=== PATIENT | female | born 2000 | race Caucasian/White ===

== ENCOUNTER 2019-10-12 14:06 | Observation (INO) ==
[2019-10-12] MEDS ORDERED: SODIUM CHLORIDE 0.9% 1000ML 1,000 ML IV ONE ×2 (15:38→17:56)
[2019-10-12] MEDS ORDERED: KETOROLAC TROMETHAMINE 15 MG/ML VIAL IV STA (15:38)
--- NOTE | 2019-10-12 15:54 | XRay Report ---
XR chest 1V portable CLINICAL HISTORY: 18 years-old Female presenting with Chest Pain. TECHNIQUE: Portable upright AP view of the chest was obtained. COMPARISON: 11/06/2012. FINDINGS: Cardiomediastinal silhouette normal. Lungs are hyperinflated. No focal opacity. No pleural effusion o r pneumothorax. Osseous structures normal. Upper abdomen normal. IMPRESSION: 1. Hyperinflation could be due to inspiratory effort and is unchanged since 2012. No focal infiltrat e to suggest pneumonia. ACT 112: Negative or not required by law. Electronically signed by: Trever Gordon M.D. 10/12/2019 3:53 PM
[2019-10-12 16:27] LABS: Basophils # (auto) 0.03 K/uL (0-0.2); Basophils % (auto) 0.2 %; Eosinophils # (auto) 0.01 K/uL (0-0.5); Eosinophils % (auto) 0.1 %; Hematocrit (blood only) 42.3 % (37-47); Hemoglobin 14.5 g/dL (12.0-16.0); Immature Granulocytes # (auto) 0.04 K/uL (0.00-0.02); Immature Granulocytes % (auto) 0.2 %; Lymphocytes # (auto) 1.65 K/uL (1.2-3.4); Mean Corpuscular Hemoglobin 30.5 pg (25-34); Mean Corpuscular Hgb Conc 34.3 g/dL (32-36); Mean Corpuscular Volume 88.9 fL (80-100); Mean Platelet Volume 10.6 fL (7.4-10.4); Monocytes # (auto) 0.88 K/uL (0.11-0.59); Monocytes % (auto) 5.3 %; Neutrophils % (auto) 84.2 %; Platelet Count 279 K/uL (130-400); RDW Coefficient of Variation 12.5 % (11.5-14.5); RDW Standard Deviation 40.3 fL (36.4-46.3); Red Blood Count 4.76 M/uL (4.2-5.4); White Blood Count 16.51 K/uL (4.8-10.8)
[2019-10-12 16:44] LABS: Alanine Aminotransferase 16 U/L (12-78); Albumin Level 4.7 gm/dl (3.4-5.0); Aspartate Aminotransferase 11 U/L (15-37); BUN Creatinine Ratio 9.1 (10-20); Blood Urea Nitrogen 8 mg/dl (7-18); Calcium 10.2 mg/dl (8.5-10.1); Carbon Dioxide 23 mmol/L (21-32); Chloride 108 mmol/L (98-107); Est GFR (African American) 116.8; Est GFR (Non-African American) 100.8; Glucose 99 mg/dl (70-99); Lipase 115 U/L (73-393); Magnesium 1.9 mg/dl (1.8-2.4); Potassium 3.8 mmol/L (3.5-5.1); Sodium 139 mmol/L (136-145)
[2019-10-12 16:45] LABS: D Dimer 200 ug/L FEU (0-500); INR 1.1 (0.9-1.1); Partial Thromboplastin Ratio 0.8; Partial Thromboplastin Time 22.8 Seconds (21.0-31.0)
[2019-10-12 16:47] LABS: Pregnancy Test, Serum Negative (Negative)
[2019-10-12 16:54] LABS: Albumin Globulin Ratio 1.1 (0.9-2); Alkaline Phosphatase 69 U/L (45-117); Bilirubin,Total 0.5 mg/dl (0.2-1); Globulin 4.2 gm/dl (2.5-4.0); Thyroid Stimulating Hormone 0.041 uIu/ml (0.300-4.500); Total Protein 8.9 gm/dl (6.4-8.2); Troponin I < 0.015 ng/ml (0-0.045)
[2019-10-12 17:07] LABS: T4 Free Thyroxine 2.17 ng/dl (0.8-1.6)
[2019-10-12] MEDS ORDERED: ADENOSINE IV SOLN 3 MG/ML 2 ML VIAL IV ONE (17:43)
[2019-10-12] MEDS ORDERED: ADENOSINE IV SOLN 3 MG/ML 2 ML VIAL IV STA ×3 (17:46→17:53)
[2019-10-12] MEDS ORDERED: MAGNESIUM SULFATE / D5W 1 GM/100 ML BAG IV ONE (17:53)
[2019-10-12] MEDS ORDERED: POTASSIUM PHOS 3 MMOL/1 ML INFUSION IV STA (17:56)
[2019-10-12] MEDS ORDERED: METOPROLOL TARTRATE 1 MG/ML VIAL IV STA (17:56)
[2019-10-12] MEDS ORDERED: METOPROLOL TARTRATE 1 MG/ML VIAL IV ONE (17:57)
[2019-10-12] MEDS ORDERED: POTASSIUM PHOSPHATE 6 MMOL in SODIUM CHLORIDE 0.9% 250 ML IV STA (18:07)
[2019-10-12 19:43] LABS: T3 Free 5.9 pg/ml (2.3-4.2); T3 Total 2.19 ng/ml (0.60-1.81)
--- NOTE | 2019-10-12 22:24 | History & Physical Report ---
Date of Service October 12, 2019 Assessment & Plan (1) Hyperthyroidism: Jesika is a 18yo with a PMHx of endometriosis and ovarian cysts who presented to the ED with chest pain and was found to be hyperthyroid. Hyperthyroidism -Pt presented with chest pain, tachycardia -TSH decreased at 0.041, T4 of 2.17 and T3 of 5.90 -EKG with sinus tachycardia and possible biatrial enlargement; vr 127; qtc 447 -will get thyroid Ig levels, thyroid US and thyroid nuclear scan -s/p adenosine and metoprolol tartrate in ED; will treat tachycardia with propranolol 10mg BID -toradol 10mg po q6h prn for pain -will not treat hyperthyroidism with methimazole yet as awaiting testing; can start once testing complete -replace and optimize electrolytes as needed. -med/surg with tele for continued monitoring Endometriosis/Ovarian cyst -stable -continue NSAIDs (toradol ordered as above) if pain control needed while hospitalized. FEN/GI: Regular diet DVT prophylaxis: low risk, ambulation as tolerated CODE STATUS: Full Dispo: Med/Surg with tele History of Present Illness Primary Care Provider: Marcella Morgan MD Maddison is a 18yo with only known endometriosis who presented to the ED after chest pain for the last day or two. Noticed it yesterday, was not doing anything in particular and thought it was related to her Hx of endometriosis as she felt the pain in her left breast. However the pain started to progress to her shoulder and back and was assocaited with dyspnea with exertion. She went to urgent care but the wait was too long so she presented to the ED. Of note she states that she has been feeling tired recently and mom in the room noted that she had a period where she had a "fast metabolism". She would have this hunger that didnt seem to be satisfied. PMHx: Endometriosis, ovarian cyst PSH: Oromaxillary facial surgery Allergies: NKDA Fam Hx: Mother alive healthy; father: unsure exact cardiac Hx--NO fam Hx of thyroid disease SH: Sophomore at [employer], lives at home. Denies recreational drug use, vaping, herbal supplements, caffeine or alcohol use. Never smoker. Diet is monitored, feels it is healthy, does not exercise much. ED Course: Adenosine 6mg and 12mg, Metoprolol tartrate 5mg, magnesium, potassium phosphate, fluids, toradol Allergies Allergy/AdvReac Type Severity Reaction Status Date / Time Cephalosporins Allergy Unknown Verified 10/15/19 13:46 amoxicillin [From Augmentin] Allergy Verified 10/15/19 13:46 cefdinir [From Omnicef] Allergy Verified 10/15/19 13:46 clavulanic acid Allergy Verified 10/15/19 13:46 [From Augmentin] clindamycin [From Cleocin] Allergy Verified 10/15/19 13:46 Home Medications Home Medications Medication Instructions Recorded Confirmed Type naproxen 250 mg PO BID #28 tab 10/14/19 10/15/19 Rx pantoprazole 40 mg PO QAM #14 tab 10/14/19 10/15/19 Rx propranolol 10 mg PO BID #60 tab 10/14/19 10/15/19 Rx methimazole 15 mg PO QAM 10/15/19 10/15/19 Rx Past Med/Surg History Medical History Fatigue No pertinent past medical history Ovarian cyst Surgical History History of oral surgery Family History Mother No pertinent family history Father No pertinent family history Social History Preferred Language: Qatari Communication Ability: Effective Java [email or web address] Application Developer Required: No Beliefs That Will Affect Care: None Current Living Situation: Other Current Living Situation Comment: [employer] student Feels Safe at Home: Yes Smoking Status: Never smoker Hx Alcohol Use: No Hx Substance Use: No Childhood Exposure to Second-Hand Smoke: No Dental Care, Regularly: Yes Review of Systems Constitutional: + weight loss; no fever, no chills and no sweats Eyes: no worsening vision Ear, Nose, Mouth, Throat: no nasal congestion and no sore throat Respiratory: + dyspnea and + dyspnea on exertion; no cough Cardiovascular: + chest pain, + chest pain at rest and + palpitations; no edema Gastrointestinal: no nausea, no vomiting, no constipation and no diarrhea/loose stools Genitourinary: no dysuria and no hematuria Musculoskeletal: no body aches Neurologic: + tingling and + numbness; no headache(s) Physical Exam Physical Exam: General: Alert, oriented. No acute distress Skin: No noted rashes or bruises Psych: Appropriate mood and affect Neuro: No gross deficits HEENT: NC/AT, PERRLA, EOMI, oropharynx moist. Chest: Nontender to palpation. CV: tachycardic rate, Normal s1, s2. No murmurs appreciated Resp: Breath sounds clear bilaterally, no increased effort of breathing. No crackles/rhonchi/rales. Abdomen: Soft, nontender, nondistended. No guarding. No organomegaly appreciated. Extremities: No edema in lower extremities bilaterally. Results & Data Vital Signs (Past 12 Hours) Vital Signs Temp Pulse Resp BP Pulse Ox 10/12/19 22:01 97 H 15 10/12/19 22:00 101 H 18 109/78 10/12/19 21:45 90 19 10/12/19 21:31 103 H 20 10/12/19 21:30 102 H 22 127/83 10/12/19 21:15 105 H 23 10/12/19 21:01 98 H 16 10/12/19 21:00 113 H 12 125/79 10/12/19 20:45 101 H 16 10/12/19 20:43 101 H 20 10/12/19 20:42 101 H 19 117/69 98 10/12/19 20:41 105 H 34 H 10/12/19 20:20 107 H 12 10/12/19 20:10 109 H 12 10/12/19 20:00 108 H 13 10/12/19 19:30 96 H 12 10/12/19 19:00 97 H 19 10/12/19 18:45 111 H 17 110/63 100 10/12/19 18:40 110 H 24 105/61 100 10/12/19 18:36 110 H 12 102/72 10/12/19 18:31 120 H 16 10/12/19 18:30 121 H 11 L 98/60 L 77 L 10/12/19 18:25 122 H 10 L 112/64 90 10/12/19 18:21 122 H 16 100 10/12/19 18:20 124 H 9 L 111/61 100 10/12/19 18:15 123 H 10 L 105/62 100 10/12/19 18:11 116 H 19 100 10/12/19 18:10 118 H 9 L 104/66 100 10/12/19 18:05 106 H 14 111/61 100 10/12/19 18:02 112 H 16 100 10/12/19 18:01 113 H 9 L 99/60 L 100 10/12/19 14:08 36.5 C 148 H 20 132/81 97 Supervising Physician Co-Signing Physician Notes Attending addendum: I have physically seen this patient, have supervised the medical residents activities, and agree with the H&P unless as otherwise noted. Assessment and Plan: Chest pain and tachycardia/hyperthyroidism- The patient will be admitted to telemetry for serial cardiac enzymes, serial EKG's, cardiac rhythm monitoring and a 2-D echocardiogram with Dopplers. Order thyroid ultrasound and thyroid uptake scan. Order thyroid antibody studies. No antithyroid medications tonight. PRN beta-dariel Toradol 15 mg IV every 6 hours PRN moderate pain. Acetaminophen 600 mg p.o. every 6 hours PRN mild pain or temperature. Remainder of orders and notations as noted. Resident Activity Tracking Resident Involvement: Resident Care Provided Care Provided: Adult [facility]
--- NOTE | 2019-10-12 22:26 | Electrocardiogram Report ---
Test Reason : Blood Pressure : / mmHG Vent. Rate : 127 BPM Atrial Rate : 127 BPM P-R Int : 152 ms QRS Dur : 086 ms QT Int : 308 ms P-R-T Axes : 072 075 056 degrees QTc Int : 447 ms Sinus tachycardia Biatrial enlargement Nonspecific ST abnormality Abnormal ECG No previous ECGs available Confirmed by Jose Washburn ([id number]) on 10/12/2019 10:26:34 PM Referred By: Confirmed By:Jose Washburn
[2019-10-12] MEDS ORDERED: INFLUENZA VIRUS QUAD VACCINE 0.5 ML SYR IM ONE (23:01)
[2019-10-12] MEDS ORDERED: INFLUENZA ADMINISTRATION CHARGE ONE (23:01)
[2019-10-12] MEDS: PROPRANOLOL HCL 10 MG TAB PO SCH (23:38)
[2019-10-13] MEDS ORDERED: KETOROLAC TROMETHAMINE 10 MG TABLET PO PRN (00:12)
--- NOTE | 2019-10-13 03:04 | Emergency Department Note ---
Entered by Sherri Medina acting as a scribe for Jose Jackson MD History of Present Illness General Chief complaint: Chest Pain Stated complaint: LEFT ARM PAIN Time Seen by Provider: 10/12/19 15:02 Source: patient Mode of arrival: ambulatory Limitations: no limitations History of Present Illness Onset (ago): hour(s) greater than 10 (14) Location: chest Radiation: extremity (left arm and left shoulder) Pain Consistency: + constant Maximum Pain Intensity: 7 Current Pain Intensity: 7 Quality: + other ("soreness") Relieved By: + none Exacerbated By: + none Associated symptoms: + shortness of breath and + other (-urinary symptoms, -back pain) Treatments prior to arrival: none The patient is a 18 year old female who presents to the ED with complaints of chest pain that began this morning around 0130. She is accompanied by her Father. She rates her pain as a 7/10 in severity. The pain feels like "soreness". The pain has also radiated into her left arm and left shoulder. She is not on control. She denies any recent fevers, chills, cough or congestion. She has been eating and drinking normally. She has been minimally short of breath. She denies any urinary symptoms. She denies any recent travel or long trips. She does not smoke cigarettes or use illegal drugs. She notes she can be occasionally anxious but states there is nothing to be anxious about currently and she has not been overwhelmed with exams or school projects. She denies any back pain. Her father denies any family history of blood clots or heart attack in someone under the age of 40. The patient does not drink coffee or use energy drinks or supplements. Home Medications Home Medications Medication Instructions Recorded Confirmed Type No Known Home Medications 02/26/19 10/12/19 History Allergies Allergy/AdvReac Type Severity Reaction Status Date / Time Cephalosporins Allergy Unknown Verified 10/12/19 17:23 amoxicillin [From Augmentin] Allergy Verified 10/12/19 17:23 cefdinir [From Omnicef] Allergy Verified 10/12/19 17:23 clavulanic acid Allergy Verified 10/12/19 17:23 [From Augmentin] clindamycin [From Cleocin] Allergy Verified 10/12/19 17:23 Past Med/Surg History Medical History Fatigue No pertinent past medical history Ovarian cyst Surgical History History of oral surgery Family History Mother No pertinent family history Father No pertinent family history Social History Preferred Language: Guinean Communication Ability: Effective 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 and A total of 10 systems reviewed and were otherwise negative Physical Exam Vital Signs Vital Signs - 24 hr 10/12/19 14:08 10/12/19 18:01 10/12/19 18:02 Temperature 36.5 C Temperature Source Oral Pulse Rate 148 H 113 H 112 H Pulse Rate from SpO2 Sensor 115 H 112 H Pulse Rhythm Regular Pulse Strength Normal Respiratory Rate 20 9 L 16 Respiratory Effort / Characteristics Non-Labored Spontaneous Respiratory Depth Normal Respiratory Pattern Regular Blood Pressure 132/81 99/60 L Blood Pressure Mean 98 79 Blood Pressure Position Sitting Pulse Oximetry 97 100 100 Oxygen Delivery Method Room Air Sepsis Recent Fever Within 48 Hours No Sepsis Action Taken by Nursing No Action Required 10/12/19 18:05 10/12/19 18:10 10/12/19 18:11 Temperature Temperature Source Pulse Rate 106 H 118 H 116 H Pulse Rate from SpO2 Sensor 107 H 117 H 116 H Pulse Rhythm Pulse Strength Respiratory Rate 14 9 L 19 Respiratory Effort / Characteristics Respiratory Depth Respiratory Pattern Blood Pressure 111/61 104/66 Blood Pressure Mean 79 78 Blood Pressure Position Pulse Oximetry 100 100 100 Oxygen Delivery Method Sepsis Recent Fever Within 48 Hours Sepsis Action Taken by Nursing 10/12/19 18:15 10/12/19 18:20 10/12/19 18:21 Temperature Temperature Source Pulse Rate 123 H 124 H 122 H Pulse Rate from SpO2 Sensor 124 H 125 H 123 H Pulse Rhythm Pulse Strength Respiratory Rate 10 L 9 L 16 Respiratory Effort / Characteristics Respiratory Depth Respiratory Pattern Blood Pressure 105/62 111/61 Blood Pressure Mean 79 78 Blood Pressure Position Pulse Oximetry 100 100 100 Oxygen Delivery Method Sepsis Recent Fever Within 48 Hours Sepsis Action Taken by Nursing 10/12/19 18:25 10/12/19 18:30 10/12/19 18:31 Temperature Temperature Source Pulse Rate 122 H 121 H 120 H Pulse Rate from SpO2 Sensor 115 H 151 H Pulse Rhythm Pulse Strength Respiratory Rate 10 L 11 L 16 Respiratory Effort / Characteristics Respiratory Depth Respiratory Pattern Blood Pressure 112/64 98/60 L Blood Pressure Mean 79 69 Blood Pressure Position Pulse Oximetry 90 77 L Oxygen Delivery Method Sepsis Recent Fever Within 48 Hours Sepsis Action Taken by Nursing 10/12/19 18:36 10/12/19 18:40 10/12/19 18:45 Temperature Temperature Source Pulse Rate 110 H 110 H 111 H Pulse Rate from SpO2 Sensor 117 H 111 H 112 H Pulse Rhythm Pulse Strength Respiratory Rate 12 24 17 Respiratory Effort / Characteristics Respiratory Depth Respiratory Pattern Blood Pressure 102/72 105/61 110/63 Blood Pressure Mean 81 69 78 Blood Pressure Position Pulse Oximetry 100 100 Oxygen Delivery Method Sepsis Recent Fever Within 48 Hours Sepsis Action Taken by Nursing 10/12/19 19:00 10/12/19 19:30 10/12/19 20:00 Temperature Temperature Source Pulse Rate 97 H 96 H 108 H Pulse Rate from SpO2 Sensor Pulse Rhythm Pulse Strength Respiratory Rate 19 12 13 Respiratory Effort / Characteristics Respiratory Depth Respiratory Pattern Blood Pressure Blood Pressure Mean Blood Pressure Position Pulse Oximetry Oxygen Delivery Method Sepsis Recent Fever Within 48 Hours Sepsis Action Taken by Nursing 10/12/19 20:10 10/12/19 20:20 10/12/19 20:41 Temperature Temperature Source Pulse Rate 109 H 107 H 105 H Pulse Rate from SpO2 Sensor Pulse Rhythm Pulse Strength Respiratory Rate 12 12 34 H Respiratory Effort / Characteristics Respiratory Depth Respiratory Pattern Blood Pressure Blood Pressure Mean Blood Pressure Position Pulse Oximetry Oxygen Delivery Method Sepsis Recent Fever Within 48 Hours Sepsis Action Taken by Nursing 10/12/19 20:42 10/12/19 20:43 10/12/19 20:45 Temperature Temperature Source Pulse Rate 101 H 101 H 101 H Pulse Rate from SpO2 Sensor Pulse Rhythm Pulse Strength Respiratory Rate 19 20 16 Respiratory Effort / Characteristics Respiratory Depth Respiratory Pattern Blood Pressure 117/69 Blood Pressure Mean 88 Blood Pressure Position Pulse Oximetry 98 Oxygen Delivery Method Sepsis Recent Fever Within 48 Hours Sepsis Action Taken by Nursing 10/12/19 21:00 10/12/19 21:01 10/12/19 21:15 Temperature Temperature Source Pulse Rate 113 H 98 H 105 H Pulse Rate from SpO2 Sensor Pulse Rhythm Pulse Strength Respiratory Rate 12 16 23 Respiratory Effort / Characteristics Respiratory Depth Respiratory Pattern Blood Pressure 125/79 Blood Pressure Mean 96 Blood Pressure Position Pulse Oximetry Oxygen Delivery Method Sepsis Recent Fever Within 48 Hours Sepsis Action Taken by Nursing 10/12/19 21:30 10/12/19 21:31 10/12/19 21:45 Temperature Temperature Source Pulse Rate 102 H 103 H 90 Pulse Rate from SpO2 Sensor Pulse Rhythm Pulse Strength Respiratory Rate 22 20 19 Respiratory Effort / Characteristics Respiratory Depth Respiratory Pattern Blood Pressure 127/83 Blood Pressure Mean 97 Blood Pressure Position Pulse Oximetry Oxygen Delivery Method Sepsis Recent Fever Within 48 Hours Sepsis Action Taken by Nursing 10/12/19 22:00 10/12/19 22:01 Temperature Temperature Source Pulse Rate 101 H 97 H Pulse Rate from SpO2 Sensor Pulse Rhythm Pulse Strength Respiratory Rate 18 15 Respiratory Effort / Characteristics Respiratory Depth Respiratory Pattern Blood Pressure 109/78 Blood Pressure Mean 91 Blood Pressure Position Pulse Oximetry Oxygen Delivery Method Sepsis Recent Fever Within 48 Hours Sepsis Action Taken by Nursing GENERAL: Awake, alert, anxious-appearing, in no distress HENT: Normocephalic, atraumatic. Oropharynx with dry mucous membranes and otherwise unremarkable. EYES: Normal conjunctiva. Sclera non-icteric. NECK: Supple. No nuchal rigidity. FROM. No JVD. RESPIRATORY: CTAB. CHEST: Mild reproducible anterior chest wall discomfort, no discrete tenderness. CARDIAC: Tachycardic rate, normal rhythm. Extremities warm and well perfused. Pulses equal. ABDOMEN: Soft, non-distended. No tenderness to palpation. No rebound or guarding. No masses. RECTAL: Deferred. MUSCULOSKELETAL: Chest examination reveals no tenderness. The back is symmetrical on inspection without obvious abnormality. There is no CVA tenderness to palpation. No joint edema. LOWER EXTREMITIES: Calves are equal size bilaterally and non-tender. No edema. No discoloration. NEURO: Normal sensorium. No sensory or motor deficits noted. SKIN: No rash or jaundice noted. Course Course 1531: The patient was evaluated in room B9 and a complete history and physical were performed. 2034: I reevaluated the patient. She is resting comfortably. I discussed her results and my recommendation she remain in the hospital for further evaluation and management and she is agreeable with the plan. 2044: I discussed the patients case with Dr. Camacho, [facility]. The patient will be further evaluated. Administered Medications Propranolol HCl (Inderal) 10 mg PO BID ANDREAS Stop: 11/11/19 22:59 Last Admin: 10/12/19 23:38 Dose: 10 mg Documented by: [id number] Discontinued Medications Adenosine (Adenosine) Confirm Administered Dose 6 mg IV .STK-MED ONE Stop: 10/12/19 17:44 Last Admin: 10/12/19 18:12 Dose: Not Given Documented by: [id number] Adenosine (Adenosine) 6 mg IV NOW STA Stop: 10/12/19 17:47 Last Admin: 10/12/19 18:12 Dose: 6 mg Documented by: [id number] Adenosine (Adenosine) 12 mg IV NOW STA Stop: 10/12/19 17:47 Last Admin: 10/12/19 18:11 Dose: 12 mg Documented by: [id number] Adenosine (Adenosine) 12 mg IV NOW STA Stop: 10/12/19 17:54 Last Admin: 10/12/19 18:11 Dose: 12 mg Documented by: [id number] Sodium Chloride (Nss 1000ml) 1,000 mls @ 999 mls/hr IV .Q1H1M ONE Stop: 10/12/19 16:38 Last Infusion: 10/12/19 19:20 Dose: 0 mls/hr Documented by: [id number] Infusion: 10/12/19 19:20 Dose: 0 mls/hr Documented by: [id number] Admin: 10/12/19 16:35 Dose: 999 mls/hr Documented by: [id number] Magnesium Sulfate/Dextrose (Magnesium Sulfate / D5w) 1 gm in 100 mls @ 100 mls/hr IV ONE ONE Stop: 10/12/19 18:52 Last Infusion: 10/12/19 20:10 Dose: 0 mls/hr Documented by: [id number] Admin: 10/12/19 19:02 Dose: 100 mls/hr Documented by: [id number] Sodium Chloride (Nss 1000ml) 1,000 mls @ 999 mls/hr IV .Q1H1M ONE Stop: 10/12/19 18:56 Last Infusion: 10/12/19 19:21 Dose: 0 mls/hr Documented by: [id number] Admin: 10/12/19 18:11 Dose: 999 mls/hr Documented by: [id number] Potassium Phosphate 6 mmol/ (Sodium Chloride) 252 mls @ 88 mls/hr IV NOW STA Stop: 10/12/19 20:58 Last Infusion: 10/12/19 21:43 Dose: 0 mls/hr Documented by: [id number] Admin: 10/12/19 18:53 Dose: 88 mls/hr Documented by: [id number] Ketorolac Tromethamine (Toradol) 15 mg IV NOW STA Stop: 10/12/19 15:39 Last Admin: 10/12/19 16:35 Dose: 15 mg Documented by: [id number] Metoprolol Tartrate (Lopressor) 5 mg IV NOW STA Stop: 10/12/19 17:57 Last Admin: 10/12/19 18:11 Dose: 5 mg Documented by: [id number] Metoprolol Tartrate (Lopressor) Confirm Administered Dose 5 mg IV .STEdCourage-MED ONE Stop: 10/12/19 17:58 Last Admin: 10/12/19 18:11 Dose: Not Given Documented by: [id number] Potassium Phosphate (Potassium Phosphate Replace) 6 mmol IV NOW STA Stop: 10/12/19 17:57 Last Admin: 10/12/19 18:58 Dose: Not Given Documented by: [id number] Critical Care Time Critical Care Time: Yes Total Critical Care Time: 85 I have personally spent greater than 85 minutes of critical care time in the direct management of this patient. This includes bedside care, interpretation of diagnostic studies, and testing, discussion with consultants, patient, and family members, and other required patient management activities. This 85 minutes is in excess of all separately billable procedures. Medical Decision Making Differential Diagnosis Differential diagnoses includes but is not limited to acute coronary syndrome, myocardial infarction, pericarditis, pulmonary embolus, aortic dissection, pneumonia, pneumothorax, musculoskeletal, shingles, esophageal. Medical Records Attestation: I reviewed the patient's medical records. Home Medications Current Medication List: was personally reviewed by me Laboratory Data Attestation: I reviewed the patient's lab results. Result diagrams: 10/12/19 16:15 10/12/19 16:15 Lab Results 10/12/19 10/12/19 10/12/19 Range/Units 16:15 16:15 16:15 WBC 16.51 H (4.8-10.8) K/uL RBC 4.76 (4.2-5.4) M/uL Hgb 14.5 (12.0-16.0) g/dL Hct 42.3 (37-47) % MCV 88.9 (80-100) fL MCH 30.5 (25-34) pg MCHC 34.3 (32-36) g/dL RDW Std Deviation 40.3 (36.4-46.3) fL RDW Coeff of Nya 12.5 (11.5-14.5) % Plt Count 279 (130-400) K/uL MPV 10.6 H (7.4-10.4) fL Immature Gran % (Auto) 0.2 % Neut % (Auto) 84.2 % Lymph % (Auto) 10.0 % Terry % (Auto) 5.3 % Eos % (Auto) 0.1 % Baso % (Auto) 0.2 % Immature Gran # (Auto) 0.04 H (0.00-0.02) K/uL Neut # (Auto) 13.90 H (1.4-6.5) K/uL Lymph # (Auto) 1.65 (1.2-3.4) K/uL Terry # (Auto) 0.88 H (0.11-0.59) K/uL Eos # (Auto) 0.01 (0-0.5) K/uL Baso # (Auto) 0.03 (0-0.2) K/uL PT 11.0 (9.0-12.0) Seconds INR 1.1 (0.9-1.1) APTT 22.8 (21.0-31.0) Seconds PTT Ratio 0.8 D-Dimer 200 (0-500) ug/L FEU Sodium 139 (136-145) mmol/L Potassium 3.8 (3.5-5.1) mmol/L Chloride 108 H (98-107) mmol/L Carbon Dioxide 23 (21-32) mmol/L Anion Gap 8.0 (3-11) BUN 8 (7-18) mg/dl Creatinine 0.84 (0.6-1.2) mg/dl Est Cr Clr Drug Dosing 102.0 ml/min Est GFR ( Amer) 116.8 Est GFR (Non-Af Amer) 100.8 BUN/Creatinine Ratio 9.1 L (10-20) Glucose 99 (70-99) mg/dl Calcium 10.2 H (8.5-10.1) mg/dl Phosphorus 2.0 L (2.5-4.9) mg/dl Magnesium 1.9 (1.8-2.4) mg/dl Total Bilirubin 0.5 (0.2-1) mg/dl AST 11 L (15-37) U/L ALT 16 (12-78) U/L Alkaline Phosphatase 69 (45-117) U/L Troponin I < 0.015 (0-0.045) ng/ml Total Protein 8.9 H (6.4-8.2) gm/dl Albumin 4.7 (3.4-5.0) gm/dl Globulin 4.2 H (2.5-4.0) gm/dl Albumin/Globulin Ratio 1.1 (0.9-2) Lipase 115 (73-393) U/L TSH 0.041 L (0.300-4.500) uIu/ml Free T4 2.17 H (0.8-1.6) ng/dl Free T3 (2.3-4.2) pg/ml Total T3 (0.60-1.81) ng/ml HCG, Qual (Negative) 10/12/19 10/12/19 Range/Units 16:15 16:15 WBC (4.8-10.8) K/uL RBC (4.2-5.4) M/uL Hgb (12.0-16.0) g/dL Hct (37-47) % MCV (80-100) fL MCH (25-34) pg MCHC (32-36) g/dL RDW Std Deviation (36.4-46.3) fL RDW Coeff of Nya (11.5-14.5) % Plt Count (130-400) K/uL MPV (7.4-10.4) fL Immature Gran % (Auto) % Neut % (Auto) % Lymph % (Auto) % Terry % (Auto) % Eos % (Auto) % Baso % (Auto) % Immature Gran # (Auto) (0.00-0.02) K/uL Neut # (Auto) (1.4-6.5) K/uL Lymph # (Auto) (1.2-3.4) K/uL Terry # (Auto) (0.11-0.59) K/uL Eos # (Auto) (0-0.5) K/uL Baso # (Auto) (0-0.2) K/uL PT (9.0-12.0) Seconds INR (0.9-1.1) APTT (21.0-31.0) Seconds PTT Ratio D-Dimer (0-500) ug/L FEU Sodium (136-145) mmol/L Potassium (3.5-5.1) mmol/L Chloride (98-107) mmol/L Carbon Dioxide (21-32) mmol/L Anion Gap (3-11) BUN (7-18) mg/dl Creatinine (0.6-1.2) mg/dl Est Cr Clr Drug Dosing ml/min Est GFR ( Amer) Est GFR (Non-Af Amer) BUN/Creatinine Ratio (10-20) Glucose (70-99) mg/dl Calcium (8.5-10.1) mg/dl Phosphorus (2.5-4.9) mg/dl Magnesium (1.8-2.4) mg/dl Total Bilirubin (0.2-1) mg/dl AST (15-37) U/L ALT (12-78) U/L Alkaline Phosphatase (45-117) U/L Troponin I (0-0.045) ng/ml Total Protein (6.4-8.2) gm/dl Albumin (3.4-5.0) gm/dl Globulin (2.5-4.0) gm/dl Albumin/Globulin Ratio (0.9-2) Lipase (73-393) U/L TSH (0.300-4.500) uIu/ml Free T4 (0.8-1.6) ng/dl Free T3 5.90 H (2.3-4.2) pg/ml Total T3 2.19 H (0.60-1.81) ng/ml HCG, Qual Negative (Negative) Imaging Data Radiologist's Impression: Radiology results as stated below per my review and the radiologist's interpretation: XR chest 1V portable CLINICAL HISTORY: 18 years-old Female presenting with Chest Pain. TECHNIQUE: Portable upright AP view of the chest was obtained. COMPARISON: 11/06/2012. FINDINGS: Cardiomediastinal silhouette normal. Lungs are hyperinflated. No focal opacity. No pleural effusion or pneumothorax. Osseous structures normal. Upper abdomen normal. IMPRESSION: 1. Hyperinflation could be due to inspiratory effort and is unchanged since 2012. No focal infiltrate to suggest pneumonia. ACT 112: Negative or not required by law. Electronically signed by: Trever Gordon M.D. 10/12/2019 3:53 PM ECG Data Attestation: I personally reviewed and interpreted this ECG as follows: Indication: + chest pain Rate (beats per minute): 127 Rhythm: + sinus tachycardia ECG Intervals/blocks: + Normal QRS (86) and + Normal QT-c (447) ECG ST segments: no ST depression and no ST elevation ECG Findings: + Other (Non-specific ST abnormality, no delta wave) Blood Pressure Blood Pressure Findings: Normal blood pressure Blood Pressure Disposition: did not require urgent referral MDM Narrative The patient is a pleasant 18 y/o woman who presents to the emergency department with constant chest pain and palpitations per HPI. On arrival the patient is anxious appearing but in NAD, AF, HR 120s and otherwise, VSS. On exam patient appears clinically dry. She has mild reproducible anterior CW discomfort. Initial EKG demonstrates sinus tachycardia without overt acute ischemia. No brugada. No delta wave. Chest xray negative for acute process. WBC 16.5, nonsecific. H/H, platelets wnl. Chemistry without acidosis. Magnesium 1.9 and Phos 2.0 with repletion provided. Otherwise, LFTs and electrolytes unremarkable. Troponin negative. D-dimer wnl. TSH decreased at 0.04 and Free T4 and T3 elevated at 2.17 and 5.9, respectively. During, patient's observation she did develop SVT up to 160, which did not respond to repeat vagal maneuvers. Adenosine given 6, 12, then 12 with transient break in ryhthm but SVT would resume. Subsequently responed to IV Lopressor. Given patient's SVT in setting of thyroid abnormalities, suspicious for thyrotoxicosis. Given this, reasonable to proceed with admission. Patient and father agreeable. Findings and plan for follow-up reviewed with patient. Patient agreeable and d/c'd per discharge instructions. Decision for further thyroid management deferred to admitting team. Impression & Plan Thyrotoxicosis, SVT (supraventricular tachycardia), Hypomagnesemia, Hypophosphatemia Discharge Plan Visit Data *Final* Discharge Date/Time: 10/12/19 22:30 Chief Complaint: Chest Pain Stated Complaint: LEFT ARM PAIN ED Provider: Jose Jackson Discharge Problem: Thyrotoxicosis, SVT (supraventricular tachycardia), Hypomagnesemia, Hypophosphatemia Patient Disposition: Admitted As Inpatient Discharge Instructions Interventions: ED Discharge Assessment Last Done: 10/12/19 22:30 Discharge Problem: Thyrotoxicosis Qualifiers: Thyrotoxicosis type: other Thyrotoxic crisis or storm presence: without thyrotoxic crisis or storm Qualified Code(s): E05.80 - Other thyrotoxicosis without thyrotoxic crisis or storm The scribe's documentation has been prepared under my direction and personally reviewed by me in its entirety. I confirm that the note above accurately reflects all work, treatment, procedures, and medical decision making performed by me.
[2019-10-13 04:07] LABS: Appearance Urine Clear (Clear); Bacteria Urine Automated Negative (Negative); Bilirubin Urine Negative (Negative); Blood Urine Negative (Negative); Cast Urine Automated 0 /lpf (0-5); Color Urine Yellow; Epithelial Cell Urine Auto 20-30 /lpf (0-5); Glucose Urine UA Negative (Negative); Ketones Urine Negative (Negative); Leukocyte Esterase Urine Trace (Negative); Nitrite Urine Negative (Negative); Protein Urine Negative (Negative); RBC Urine Automated 0-4 /hpf (0-4); Specific Gravity Urine 1.019 (1.000-1.030); Urobilinogen Urine Negative (Negative); pH Urine 6.5 (4.5-7.5)
--- NOTE | 2019-10-13 07:55 | Ultrasound Report ---
THYROID ULTRASOUND HISTORY: hyperthyroidism COMPARISON: None. FINDINGS: Right lobe: 5.0 x 1.7 x 1.6 cm. Heterogeneous gland with increased color flow. No definite nodules. Left lobe: 5.0 x 1.4 x 1.7 cm. Heterogeneous gland with increased color flow. No definite nodules. Isthmus: 3 mm in thickness. No nodules. Miscellaneous: Multiple hypoechoic nodules adjacent to the lower poles of the bilateral thyroid lobes with the largest on the left measuring 1 cm. IMPRESSION: 1. Heterogeneous thyroid gland with increased color flow. This may represent a thyroiditis. 2. Multiple hypoechoic nodules adjacent to the lower poles with the largest on the left measuring 1 c m. These are nonspecific and could represent reactive lymph nodes versus less likely parathyroid adenoma s. Follow-up recommended to ensure stability/resolution. ACT 112: Negative or not required by law. Electronically signed by: Olayinka Sutton M.D. 10/13/2019 7:54 AM
[2019-10-13] MEDS: PROPRANOLOL HCL 10 MG TAB PO SCH ×2 (08:16→20:35)
[2019-10-13 09:07] LABS: Hematocrit (blood only) 39.5 % (37-47); Hemoglobin 13.2 g/dL (12.0-16.0); Mean Corpuscular Hemoglobin 29.9 pg (25-34); Mean Corpuscular Hgb Conc 33.4 g/dL (32-36); Mean Corpuscular Volume 89.4 fL (80-100); Mean Platelet Volume 10.2 fL (7.4-10.4); Platelet Count 249 K/uL (130-400); RDW Coefficient of Variation 12.7 % (11.5-14.5); RDW Standard Deviation 41.1 fL (36.4-46.3); Red Blood Count 4.42 M/uL (4.2-5.4); White Blood Count 9.14 K/uL (4.8-10.8)
[2019-10-13 09:29] LABS: BUN Creatinine Ratio 7.5 (10-20); Calcium 9.8 mg/dl (8.5-10.1); Creatinine Clr Calc Pharmacy 106.2 ml/min; Est GFR (Non-African American) 105.3; Magnesium 2.1 mg/dl (1.8-2.4); Potassium 3.7 mmol/L (3.5-5.1)
[2019-10-13 09:36] LABS: Phosphorus 2.6 mg/dl (2.5-4.9)
[2019-10-13] MEDS ORDERED: ACETAMINOPHEN 500 MG TAB PO PRN (09:50)
[2019-10-13] MEDS ORDERED: KETOROLAC 30 MG/ML VIAL IV PRN (11:29)
[2019-10-13] MEDS ORDERED: KETOROLAC TROMETHAMINE 15 MG/ML VIAL IV PRN (12:00)
--- NOTE | 2019-10-13 15:07 | Hospitalist Progress Note ---
Date of Service October 13, 2019 Assessment & Plan (1) Hyperthyroidism: Ms. Vieira presented with chest pain and tachycardia that was refractory to adenosine x3 but responded to metoprolol. TSH was found to be decreased at 0.041, T4 of 2.17 and T3 of 5.90. An EKG showed sinus tachycardia and possible biatrial enlargement. Repeat EKG 10/13 showed NSR. A thyroid US showed possible small nodules that may be reactive lymph nodes and a heterogenous thyroid. Discussed case with endocrinology - do not recommend further workup as this is almost certainly Graves disease given sudden onset. Recommends starting methimazole 15 mg bid along with beta dariel and the will see her in the office for follow up. -pending thyroid Ig levels -continue propranolol 10mg BID -toradol 15mg IV q6h prn and Tylenol 1000 mg q6h prn for pain (2) Chest pain: Patient's pain does not exactly follow a pericarditis pattern as the pain is relieved with supine position and worsened with sitting up or leaning forward. She has not had any recent viral illness though her family did have an upper respiratory illness earlier in the month. Patient was also seen in the ED 09/25 for abdominal pain with unremarkable workup but did have leukocytosis at that time. Repeat EKG today without any apparent changes concerning for pericarditis. Troponins negative x2 - pending echocardiogram - continue pain control as above (3) Tachycardia: Heart rate now wnl Treatment as above Admission and Anticipated Discharge Date Admission Date: October 12, 2019 Anticipated discharge 10/14 Supervising Physician Co-Signing Physician Notes I supervised Yovana Singletary NP on this patient's care. I examined the patient today independently of her. I discussed the plan of care with her with the plan being as written in her note except for any following changes/exceptions: None. Patient's chest pain has improved with Toradol and acetaminophen. The history is not strongly indicative for pericarditis, but we will trend on additional troponin and get an echo. Follow serial EKGs. For her hyperthyroidism, we will start propranolol and methimazole on the recommendation of endocrinology. If she remains stable overnight and chest pain possibly improves, we can hopefully discharge her tomorrow. Subjective Ms. Vieira continued to have chest pain this morning but it is improving somewhat this afternoon and feeling that her heart is beating hard. her chest pain feels better when she is laying on her back than sitting up or leaning forward. She denies any radiation, no reproducible on palpation. No tenderness of the thyroid. ROS Constitutional: no chills, aches, sweats or fever Respiratory: no sob,cough, sputum, or wheezing Cardiac: no edema, orthopnea or lightheadedness GI: no abdominal pain, nausea, vomiting, diarrhea or constipation : no dysuria or hesitancy Extremities: no joint pain or weakness Skin: no rash All other systems reviewed and negative Physical Exam Physical Exam: General: no distress Eyes: normal inspection, PERLL Respiratory: chest non tender, clear to auscultation, normal breath sounds, no respiratory distress, no accessory muscle use Cardiac: regular rate and rhythm, no rub or gallop, no murmur, no edema, no jvd GI/: active bowel sounds, no abd pain or tenderness, soft, non distended Extremities: normal range of motion, normal strength, non tender Neuro/Psych: alert and oriented x 3, normal mood and affect Skin: normal color, dry Results & Data ([facility]) Vital Signs (Past 12 Hours) Vital Signs Temp Pulse Pulse Resp BP Pulse Ox 10/13/19 12:01 36.9 C 66 18 91/57 L 98 10/13/19 09:56 80 10/13/19 07:47 36.6 C 83 16 121/77 98 10/13/19 03:57 36.6 C 96 H 18 92/56 L 97 PG Care Time/CCT Total # of Minutes Spent Total Time Spent with Patient: Total time spent is greater than 50% in coordination of care (as documented) at patient's floor/unit and/or counseling patient: Coding Level of Care Code 92061 Subseq Hosp Care Lvl 3 Diagnoses Hyperthyroidism E05.90 Chest pain R07.9 Tachycardia R00.0
--- NOTE | 2019-10-13 17:35 | XCELERA ---
[id number] \\[email or web address]\[id number]
--- NOTE | 2019-10-13 18:04 | Electrocardiogram Report ---
Test Reason : Blood Pressure : / mmHG Vent. Rate : 148 BPM Atrial Rate : 148 BPM P-R Int : 000 ms QRS Dur : 074 ms QT Int : 344 ms P-R-T Axes : 000 076 061 degrees QTc Int : 540 ms Sinus tachycardia Nonspecific ST and T wave abnormality Abnormal ECG When compared with ECG of 12-OCT-2019 14:15, (unconfirmed) No significant change was found Confirmed by Jose Miguel Delacruz ([id number]) on 10/13/2019 6:04:36 PM Referred By: REFERRED SELF Confirmed By:Kranthi Delacruz
--- NOTE | 2019-10-13 18:05 | Electrocardiogram Report ---
Test Reason : Blood Pressure : / mmHG Vent. Rate : 156 BPM Atrial Rate : 156 BPM P-R Int : 112 ms QRS Dur : 074 ms QT Int : 326 ms P-R-T Axes : 067 073 059 degrees QTc Int : 525 ms Sinus tachycardia Abnormal ECG When compared with ECG of 12-OCT-2019 17:36, (unconfirmed) No significant change was found Confirmed by Jose Miguel Delacruz ([id number]) on 10/13/2019 6:04:56 PM Referred By: REFERRED SELF Confirmed By:Kranthi Delacruz
--- NOTE | 2019-10-13 18:06 | Electrocardiogram Report ---
Test Reason : Blood Pressure : / mmHG Vent. Rate : 152 BPM Atrial Rate : 152 BPM P-R Int : 120 ms QRS Dur : 074 ms QT Int : 330 ms P-R-T Axes : 060 075 065 degrees QTc Int : 524 ms Poor data quality, interpretation may be adversely affected Sinus tachycardia Nonspecific ST and T wave abnormality Abnormal ECG When compared with ECG of 12-OCT-2019 17:47, (unconfirmed) No significant change was found Confirmed by Jose Miguel Delacruz ([id number]) on 10/13/2019 6:05:29 PM Referred By: REFERRED SELF Confirmed By:Kranthi Delacruz
[2019-10-13] MEDS: methIMAzole 5 MG TABLET PO SCH (18:18)
--- NOTE | 2019-10-13 18:24 | Electrocardiogram Report ---
Test Reason : Blood Pressure : / mmHG Vent. Rate : 064 BPM Atrial Rate : 064 BPM P-R Int : 160 ms QRS Dur : 088 ms QT Int : 416 ms P-R-T Axes : 069 073 065 degrees QTc Int : 429 ms Normal sinus rhythm with sinus arrhythmia Possible Left atrial enlargement Borderline ECG When compared with ECG of 12-OCT-2019 17:48, (unconfirmed) Vent. rate has decreased BY [address] no longer depressed in Inferior leads ST elevation has replaced ST depression in Lateral leads Nonspecific T wave abnormality no longer evident in Lateral leads Confirmed by Jose Miguel Delacruz ([id number]) on 10/13/2019 6:24:08 PM Referred By: REFERRED SELF Confirmed By:Kranthi Delacruz
[2019-10-13] MEDS ORDERED: methIMAzole 5 MG TABLET PO SCH (21:00)
[2019-10-13] MEDS ORDERED: ATENOLOL 25 MG TABLET PO SCH (21:00)
[2019-10-14] MEDS: PROPRANOLOL HCL 10 MG TAB PO SCH (08:37)
[2019-10-14] MEDS: methIMAzole 5 MG TABLET PO SCH (08:37)
[2019-10-14] MEDS ORDERED: NAPROXEN 250 MG TAB PO SCH (09:00)
[2019-10-14] MEDS ORDERED: PANTOprazole 40 MG TAB PO SCH (09:00)
--- NOTE | 2019-10-14 15:10 | Discharge Summary ---
Date of Service October 14, 2019 Admission HPI Per Admitting Provider Maddison is a 18yo with only known endometriosis who presented to the ED after chest pain for the last day or two. Noticed it yesterday, was not doing anything in particular and thought it was related to her Hx of endometriosis as she felt the pain in her left breast. However the pain started to progress to her shoulder and back and was assocaited with dyspnea with exertion. She went to urgent care but the wait was too long so she presented to the ED. Of note she states that she has been feeling tired recently and mom in the room noted that she had a period where she had a "fast metabolism". She would have this hunger that didnt seem to be satisfied. PMHx: Endometriosis, ovarian cyst PSH: Oromaxillary facial surgery Allergies: NKDA Fam Hx: Mother alive healthy; father: unsure exact cardiac Hx--NO fam Hx of thyroid disease SH: Sophomore at [employer], lives at home. Denies recreational drug use, vaping, herbal supplements, caffeine or alcohol use. Never smoker. Diet is monitored, feels it is healthy, does not exercise much. ED Course: Adenosine 6mg and 12mg, Metoprolol tartrate 5mg, magnesium, potassium phosphate, fluids, toradol Principal Diagnosis Hyperthyroidism Discharge Exam Constitutional WD/WN, vitals as above Respiratory normal respiratory effort, lungs clear to auscultation Cardiovascular RRR, no murmur, no edema Gastrointestinal (Abdomen) Inspection/Auscultation: abdomen normal to inspection and normal bowel sounds; abdomen not distended Percussion/Palpation: abdomen soft; abdomen nontender Musculoskeletal no cyanosis or clubbing, extremities motor strength 5/5 Skin no rashes, warm and dry Neurologic moves all extremities and awake Psychiatric A+Ox3, euthymic affect Discharge Data Allergies Allergy/AdvReac Type Severity Reaction Status Date / Time Cephalosporins Allergy Unknown Verified 10/12/19 17:23 amoxicillin [From Augmentin] Allergy Verified 10/12/19 17:23 cefdinir [From Omnicef] Allergy Verified 10/12/19 17:23 clavulanic acid Allergy Verified 10/12/19 17:23 [From Augmentin] clindamycin [From Cleocin] Allergy Verified 10/12/19 17:23 Consultations 10/12/19 19:58 ED Decision to Admit Stat 10/14/19 14:22 Consult [facility] animal science professor Routine Ordered Studies 10/13/19 21:57 US thyroid Urgent Hospital Course (1) Hyperthyroidism: Ms. Vieira presented with chest pain and tachycardia that was refractory to adenosine x3 but responded to metoprolol. TSH was found to be decreased at 0. 041, T4 of 2.17 and T3 of 5.90. An EKG showed sinus tachycardia and possible biatrial enlargement. Repeat EKG 10/13 showed NSR. A thyroid US showed possible small nodules that may be reactive lymph nodes and a heterogenous thyroid. Discussed case with endocrinology - do not recommend further workup as this is almost certainly Graves disease given sudden onset. Recommends starting methimazole along with beta dariel and then will see her in the office for follow up. Today Ms. Vieira has been up and ambulating around the halls without discomfort. Her heart rate has ranged from 40s to 140s but is not sustained at the higher numbers and she has not had any lightheadedness or dizziness. Will have her hold off on returning to classes until cleared by her pcp. Dr. Hernandez and myself both spent significant time over the course of this hospitalization answering questions and educating patient and her mother on patient's new diagnosis. No further questions this afternoon and patient feels she understands discharge instructions and warning signs. -continue propranolol 10mg BID - continue methimazole - will fu with pcp this week (2) Chest pain: Patient's pain does not exactly follow a pericarditis pattern as the pain is relieved with supine position and worsened with sitting up or leaning forward. She has not had any recent viral illness though her family did have an upper respiratory illness earlier in the month. Patient was also seen in the ED 2/ for abdominal pain with unremarkable workup but did have leukocytosis at that time. Repeat EKG without any apparent changes concerning for pericarditis. Troponins negative x2. As above, ambulating the halls without difficulty. - Echocardiogram was normal without any effusion - will have patient take naproxen bid with pantoprazole for 2 weeks to alleviate chest pain. She reports her chest pain is much better today already (3) Tachycardia: Heart rate mostly wnl especially when at rest, elevates to 140 at its highest with exertion and decreases back to normal or mildly bradycardic once resting. No palpitations or lightheadedness. Chest pain has improved. Treatment as above Total Time Total Time Spent Total Time Spent (In Minutes): greater than 30 minutes Discharge Plan Discharge Items Patient Disposition: Home - Self-Care Reason For Visit: CHEST PAIN Discharge Diagnosis: Hyperthyroidism Activity: Per Instructions section Non-emergency contact: Primary Care Provider Call non-emergency contact if: you have any medication questions, your symptoms worsen and your pain is not controlled Follow-up/Referrals: Marcella Morgan MD [Primary Care Provider] - (Follow up this week ) Diet: Regular Addtl Attending Provider Instructions: (1) Hyperthyroidism: Upon admission your Thyroid Stimulating Hormone (TSH) was found to be decreased at 0.041, while your thyroid hormones were elevated with a T4 of 2.17 and T3 of 5.90. What this means is that your body was producing too much thyroid hormone which was causing you to have hypermetabolic symptoms (because the thyroid is part of what regulates your body's metabolism) like a fast heart rate. Your workup included: An electrocardiogram showed sinus tachycardia (fast rate of a normal rhythm). Repeat electrocardiogram 10/13 showed a normal rhythm and rate. A thyroid ultrasound showed possible small nodules that may be reactive lymph nodes (due to inflammation) and a heterogenous (non uniform) appearing thyroid which may also just be due to inflammation. A number of things can cause hyperthyroidism but given your presentation and age the most likely cause of your hyperthyroidism is Grave's disease but we will need the results of your antibody blood work before that can be decided. For now the goal is to lessen your symptoms and then you can follow up for more definitive diagnosing and any necessary further workup with endocrinology. -continue propranolol 10mg twice per day to control your heart rate - continue methimazole 15 mg daily. -follow up with your primary care provider this week - follow up with endocrinology in 2-3 weeks. A referral has been sent for our nurse navigator to make the endocrinology appointment for you. If you do not hear from her by Tuesday, please call [facility] appointment to be sure an appointment is set up for you. (2) Chest pain: As discussed above your workup included electrocardiograms as well as an echocardiogram (ultrasound of the heart). Your echocardiogram showed that the structure of your heart appeared normal and that the amount of blood pumped out from the left ventricle to the body with each beat was normal. There was also no sign of effusion (fluid in the lining of the heart) which decreases the concern for inflammation of the heart causing your pain. Your troponin (blood work that can indicate cardiac injury) was normal on 2 separate checks. - You will go home with a prescription for 2 weeks of naproxen along with 2 weeks of pantoprazole. Naproxen is a non steroidal antiinflammatory (NSAID). The pantoprazole is to decrease the amount of stomach acid you produce while taking the naproxen to help avoid any irritation or ulceration of the stomach lining while taking the naproxen. You can also take Tylenol as directed on the bottle if you need added pain control (3) Tachycardia: Your heart rate is ranging from 40s to 140 on the monitor though it has mostly been a normal rate. If you experience a rapid rate, sit down and relax and drink a glass of cold water. If your heart rate is sustaining above 160 beats per minute despite sitting down for a few minutes, or if you are feeling persistent palpitations or lightheadedness, please call your doctor or return the emergency department. - Propranolol 10 mg twice per day to control your heart rate has been pr escribed. This drug will also decrease your blood pressure. Please change positions from sitting to standing slowly before you start walking to avoid getting dizzy. Please avoid exercising for now. Take it easy until your follow up with your primary care provider and listen to your body. You can certainly be up and moving around your home but you should avoid any activity that causes you to feel strained or uncomfortable. Pending Studies at Discharge: Yes Studies:: Thyroid antibodies Stand-Alone Forms: [facility], Work/School Release (Inpt), Smoking Cessation Medications and DC Order Prescriptions: New propranolol 10 mg Tablet 10 mg PO BID Qty: 60 RF: 0 naproxen 250 mg Tablet 250 mg PO BID Qty: 28 RF: 0 pantoprazole 40 mg Tablet,Delayed Release (Dr/Ec) 40 mg PO QAM Qty: 14 RF: 0 methimazole 5 mg Tablet 15 mg PO DAILY Qty: 90 RF: 1 No Action No Known Home Medications RF: 0 Discharge Orders: Discharge Order (Routine); Ordered 10/14/19 Ordered By: Yovana Dc/Other Patient Handouts: Hyperthyroidism Dc, Methimazole tablets, Propranolol tablets Admission Data Admit Date/Time: 10/12/19 22:04 Attending Provider: Charlie Hernandez Admit Provider: Stacia Dennis Primary Care Provider: Marcella Morgan Other Providers: Charlie Hernandez Other Interventions: Discharge Summary Assessment (RN) Last Done: 10/14/19 15:08 DC Date/Time DO NOT enter until pt leaves facility: 10/14/19 15:59 Supervising Physician Co-Signing Physician Notes I supervised Yovana Singletary NP on this patient's care. I examined the patient today independently of her. I discussed the plan of care with her with the plan being as written in her note except for any following changes/exceptions: None. Improving today. She has less chest pain. HR is still labile, but no symptoms from it (lightheadedness, dizziness, shortness of breath, or palpitations). I encouraged her to walk the halls to mimic her going to class. I encouraged her to do whatever activity she felt comfortable with, but that bed rest was not ideal. Will follow up with Dr. Arredondo in 2 weeks for further evaluation. Coding Level of Care Code D/C Day Management >30 mins Diagnoses Hyperthyroidism E05.90 Chest pain R07.9 Tachycardia R00.0
--- NOTE | 2019-10-14 16:27 | Billing Data ---
Date of Service October 14, 2019 Coding Level of Care Code 81039 Prolonged Care (int'l) Comment In the room with the patient from 11:00am to 11:35am.
[2019-10-15 13:25] LABS: Microsomal Ab 591 IU/mL (<9); Thyroglobulin Antibodies 6 IU/mL (< or = 1)
--- NOTE | 2019-10-15 21:07 | Billing Data ---
Date of Service October 15, 2019 Coding Level of Care Code 20995 OBS Care - Level 3
== END 2019-10-14 15:59 | disposition home or self-care (01) ==
LOC: ED 14:06 → 2W 14:06 → SUATTDRO 22:04 → 2W 22:30

== ENCOUNTER 2019-12-29 23:04 | Observation (INO) ==
[2019-12-29] MEDS ORDERED: METOPROLOL TARTRATE 1 MG/ML VIAL IV ONE (23:21)
[2019-12-29] MEDS ORDERED: SODIUM CHLORIDE 0.9% 1000ML 1,000 ML IV ONE (23:25)
[2019-12-29] MEDS ORDERED: METOPROLOL TARTRATE 1 MG/ML VIAL IV STA (23:25)
--- NOTE | 2019-12-29 23:29 | Emergency Department Note ---
Impression & Plan Tachycardia, Thyroid dysfunction, Hypokalemia ED Provider Note Name: BARBARA NAVARRO Age: 19 Sex: F Arrives Via: Walk-In Informant: Patient ED Provider: Brendan Oconnor MD Chief Complaint: Tachycardia Impression: Tachycardia Thyroid Dysfunction Hypokalemia Medical Decision Makin yr old female arrives with weakness, fatigue and tachycardia of 150 bpm. She has history hyperthyroid which is now reportedly hypothyroid but requiring beta blockers to keep tachycardia at bay. This has resulted in multiple ED visits, hospitalization and outpatient visits. Notes sore throat recently which was concerned to be from metoprolol so taken of this 2 days ago and switched to diltiazem. Now back in tachycardic rate with BP ok. Labs with some mild hypokalemia and elevated TSH which is similar to previous. T3 and T4 unremarkable. With single dose Lopressor IV she has resolution of tachycardia and symptoms much better. Discussed pros cons of monitoring in hospitalist and she/mother feel monitoring further necessary which given this being 4th visit in last few days, and return of symptoms seems reasonable. I do not feel this represents PE, dissection. It may be she is having exagerated cardiac response to thyroid meds. Prior Medical Record and Triage/Nursing Notes reviewed by Me Additional history obtained from mother via phone Differentials:Premature contractions, electrolyte abnormality, cardiac dysrhyt hmia, thyroid dysfunction, pulmonary embolism, infection, gastrointestinal, as well as other pathologies. Vital Signs: reviewed and remarkable for tachycardia Interventions: saline lock, nss bolus 1 L IV, lopressor 5mg IV Labs:Reviewed and remarkable for TSH 14, K 2.9 EKG:Per My Interpretation: Indication Palpitations: 11:23 pm Sinus tach 141 bpm, qtc 540. No Ectopy. There are diffuse ST depressions. Compared to EKG 12/27/19 rate has increased Per My Interpretation: Indication return NSR: 12:02am SR 74 bpm, qtc 432 with sinus arythmia. No Ectopy. No Ischemia. Compared to EKG earlier she has resolution of tachycardia and has resolution ST depressions Cardiac/Tele Monitoring: Cardiac Monitoring: An Order was placed for continuous cardiac monitoring. The monitor shows a rate of 140 with a tachycardic rhythm. Consults:Dr Mendoza who will bring in for further evaluation Plan: Disposition:Hospitalization. Condition: Good Blood pressure:Normal.No Referral necessary Prescriptions:None PDMP: n/a History of Present Illness:19 / F arrives for evaluation of palpitations. Palpitations acutely worsening this evening. Associated with fatigue, exhaustion, generalized weakness. Exertion makes worse. Laying back makes better. No medications taken acutely for this. Patient with history of thyroid issues with previous thyrotoxicosis and over last few months in hypothyroid state. Previously on Propranolol for palpitations which was stopped a few months ago. Over last month worsening palpitations and multiple ED visits for this. She has been on Metoprolol for the last week with excellent results and no further palpitations until today when metoprolol was stopped and she was switched to diltiazem. Patient notes that she had had a scratchy throat for a few days and there was concern she was allergic to Metoprolol. No rash, swelling, shob nor other symptoms. She denies any other new medications though was switched from tablet to liquid formation of levothyroxine recently. No cp, syncope, sob, nausea, vomiting, eating changes, leg swelling, rashes, back pain, urinary symptoms, vaginal bleeding/discharge, diarrhea, change in menstraul cycle, vision changes, headache, shaking, focal weakness nor other symptoms. This is the worst her symptoms have been since this started. ROS: See above HPI for pertinent positives & negatives. A total of 10 systems reviewed and were otherwise negative. Past Medical History:Hypo/HyperThyroidism Past Surgical History:mouth surgery Family History:father arrythmia Social History:[employer] student, no drugs, no etoh, no smoking, lives with mother Home Medications:Vit D3, Levothyroxine, Diltiazem Allergies:Cephalosporins, methimazole, amoxicillin, clinda Vitals:Blood Pressure: 113/72, Pulse 150, RR 18, T 36.6C, O2 100% on RA Physical Exam: GENERAL: Patient is anxious appearing and in minimal distress. EYES: No scleral icterus, unremarkable pupils. ENT: Mucous membranes moist, no nasal congestion. NECK: No masses appreciated, nomeningismus, trachea is midline. RESPIRATORY: No dyspnea. Clear to auscultation and equal bilaterally. No wheeze, no rhonchi. CARDIOVASCULAR: Tachycardic.No murmurs, rubs, gallops appreciated. GASTROINTESTINAL: Abdomen soft, non-tender, no peritonitis.Bowel sounds positive.No masses appreciated. BACK: No midline tenderness, no CVA tenderness EXTREMITIES: Normal motion all extremities, no cyanosis, no edema. NEUROLOGIC: Alert and oriented, no acute motor or sensory deficits, no focal weakness, cranial nerves grossly intact. SKIN: No rash, no jaundice, no diaphoresis. PSYCH: Appropriate GCS: 15 ED Course: Times/Reassessments: Multiple, tachy resolved and feeling better Brendan Oconnor MD Past Med/Surg History Social History Preferred Language: Urdu Communication Ability: Effective Integrated Circuits Inspector Required: No Beliefs That Will Affect Care: None Current Living Situation: Other Current Living Situation Comment: [employer] student Feels Safe at Home: Yes Smoking Status: Never smoker Hx Alcohol Use: No Hx Substance Use: No Childhood Exposure to Second-Hand Smoke: No Dental Care, Regularly: Yes Allergies Allergies Allergy/AdvReac Type Severity Reaction Status Date / Time Cephalosporins Allergy Unknown Verified 12/24/19 10:50 methimazole Allergy Unknown Hives Verified 12/24/19 10:50 amoxicillin [From Augmentin] Allergy Verified 12/24/19 10:50 cefdinir [From Omnicef] Allergy Verified 12/24/19 10:50 clavulanic acid Allergy Verified 12/24/19 10:50 [From Augmentin] clindamycin [From Cleocin] Allergy Verified 12/24/19 10:50 Home Meds Previous Rx's Medication Instructions Recorded cholecalciferol (vitamin D3) 1,250 1,250 mcg PO .COMPLEX #4 cap 12/20/19 mcg (50,000 unit) capsule levothyroxine 50 mcg tablet 50 mcg PO DAILY #90 tab 12/20/19 diltiazem HCl 30 mg tablet See Rx Instructions .ROUTE 12/28/19 .COMPLEX #90 tab Results & Data (ED) Vital Signs Vital Signs - 24 hr 12/29/19 23:08 12/29/19 23:18 12/29/19 23:24 Temperature 36.6 C Temperature Source Oral Pulse Rate 120 H 150 H Pulse Rate [Apical] Pulse Strength Normal Respiratory Rate 20 Respiratory Effort / Characteristics Non-Labored Respiratory Depth Normal Respiratory Pattern Regular Blood Pressure 122/84 126/78 Blood Pressure [Left Arm] Blood Pressure Mean 96 Blood Pressure Mean [Left Arm] Blood Pressure Position Sitting Pulse Oximetry 100 99 Oxygen Delivery Method Room Air Room Air Sepsis Recent Fever Within 48 Hours No Sepsis New/Unexplained Change in Mental Status No Sepsis Action Taken by Nursing No Action Required 12/29/19 23:25 12/29/19 23:30 12/30/19 00:00 Temperature Temperature Source Pulse Rate Pulse Rate [Apical] 92 H 81 71 Pulse Strength Respiratory Rate 14 18 18 Respiratory Effort / Characteristics Respiratory Depth Respiratory Pattern Blood Pressure Blood Pressure [Left Arm] 131/75 121/74 113/75 Blood Pressure Mean Blood Pressure Mean [Left Arm] 93 89 87 Blood Pressure Position Pulse Oximetry 97 98 100 Oxygen Delivery Method Room Air Room Air Room Air Sepsis Recent Fever Within 48 Hours Sepsis New/Unexplained Change in Mental Status Sepsis Action Taken by Nursing 12/30/19 00:30 12/30/19 01:00 12/30/19 01:30 Temperature Temperature Source Pulse Rate Pulse Rate [Apical] 88 74 86 Pulse Strength Respiratory Rate 18 18 18 Respiratory Effort / Characteristics Respiratory Depth Respiratory Pattern Blood Pressure Blood Pressure [Left Arm] 115/67 112/76 117/72 Blood Pressure Mean Blood Pressure Mean [Left Arm] 83 88 87 Blood Pressure Position Pulse Oximetry 99 96 97 Oxygen Delivery Method Room Air Room Air Room Air Sepsis Recent Fever Within 48 Hours Sepsis New/Unexplained Change in Mental Status Sepsis Action Taken by Nursing 12/30/19 02:00 12/30/19 02:30 Temperature Temperature Source Pulse Rate Pulse Rate [Apical] 73 70 Pulse Strength Respiratory Rate 18 18 Respiratory Effort / Characteristics Respiratory Depth Respiratory Pattern Blood Pressure Blood Pressure [Left Arm] 96/56 L 99/72 L Blood Pressure Mean Blood Pressure Mean [Left Arm] 69 81 Blood Pressure Position Pulse Oximetry 97 97 Oxygen Delivery Method Room Air Room Air Sepsis Recent Fever Within 48 Hours Sepsis New/Unexplained Change in Mental Status Sepsis Action Taken by Nursing Laboratory Data Result diagrams: 12/29/19 23:25 12/29/19 23:25 Lab Results 12/29/19 12/29/19 12/29/19 Range/Units 23:25 23:25 23:25 WBC 12.13 H (4.8-10.8) K/uL RBC 4.62 (4.2-5.4) M/uL Hgb 14.0 (12.0-16.0) g/dL Hct 40.8 (37-47) % MCV 88.3 (80-100) fL MCH 30.3 (25-34) pg MCHC 34.3 (32-36) g/dL RDW Std Deviation 41.9 (36.4-46.3) fL RDW Coeff of Nya 12.9 (11.5-14.5) % Plt Count 304 (130-400) K/uL MPV 10.5 H (7.4-10.4) fL Immature Gran % (Auto) 0.2 % Neut % (Auto) 49.4 % Lymph % (Auto) 41.5 % [place] % (Auto) 7.0 % Eos % (Auto) 1.5 % Baso % (Auto) 0.4 % Immature Gran # (Auto) 0.03 H (0.00-0.02) K/uL Neut # (Auto) 5.99 (1.4-6.5) K/uL Lymph # (Auto) 5.03 H (1.2-3.4) K/uL [place] # (Auto) 0.85 H (0.11-0.59) K/uL Eos # (Auto) 0.18 (0-0.5) K/uL Baso # (Auto) 0.05 (0-0.2) K/uL Sodium 140 (136-145) mmol/L Potassium 2.9 L (3.5-5.1) mmol/L Chloride 108 H (98-107) mmol/L Carbon Dioxide 22 (21-32) mmol/L Anion Gap 10.0 (3-11) BUN 10 (7-18) mg/dl Creatinine 0.95 (0.6-1.2) mg/dl Est Cr Clr Drug Dosing 84.1 ml/min Est GFR ( Amer) 99.9 Est GFR (Non-Af Amer) 86.2 BUN/Creatinine Ratio 10.7 (10-20) Glucose 104 H (70-99) mg/dl Calcium 9.6 (8.5-10.1) mg/dl Phosphorus 3.4 (2.5-4.9) mg/dl Magnesium 2.1 (1.8-2.4) mg/dl Total Bilirubin 0.5 (0.2-1) mg/dl Direct Bilirubin 0.1 (0-0.2) mg/dl AST 9 L (15-37) U/L ALT 16 (12-78) U/L Alkaline Phosphatase 69 (45-117) U/L Total Creatine Kinase 61 (26-192) U/L CK-MB (CK-2) < 1.0 (0.5-3.6) ng/ml CK/CKMB % Calc TNP Troponin I < 0.015 (0-0.045) ng/ml Total Protein 8.8 H (6.4-8.2) gm/dl Albumin 4.6 (3.4-5.0) gm/dl TSH 14.600 H (0.300-4.500) uIu/ml Free T4 1.24 (0.8-1.6) ng/dl Free T3 3.39 (2.3-4.2) pg/ml HCG, Qual (Negative) 12/29/19 Range/Units 23:25 WBC (4.8-10.8) K/uL RBC (4.2-5.4) M/uL Hgb (12.0-16.0) g/dL Hct (37-47) % MCV (80-100) fL MCH (25-34) pg MCHC (32-36) g/dL RDW Std Deviation (36.4-46.3) fL RDW Coeff of Nya (11.5-14.5) % Plt Count (130-400) K/uL MPV (7.4-10.4) fL Immature Gran % (Auto) % Neut % (Auto) % Lymph % (Auto) % [place] % (Auto) % Eos % (Auto) % Baso % (Auto) % Immature Gran # (Auto) (0.00-0.02) K/uL Neut # (Auto) (1.4-6.5) K/uL Lymph # (Auto) (1.2-3.4) K/uL [place] # (Auto) (0.11-0.59) K/uL Eos # (Auto) (0-0.5) K/uL Baso # (Auto) (0-0.2) K/uL Sodium (136-145) mmol/L Potassium (3.5-5.1) mmol/L Chloride (98-107) mmol/L Carbon Dioxide (21-32) mmol/L Anion Gap (3-11) BUN (7-18) mg/dl Creatinine (0.6-1.2) mg/dl Est Cr Clr Drug Dosing ml/min Est GFR ( Amer) Est GFR (Non-Af Amer) BUN/Creatinine Ratio (10-20) Glucose (70-99) mg/dl Calcium (8.5-10.1) mg/dl Phosphorus (2.5-4.9) mg/dl Magnesium (1.8-2.4) mg/dl Total Bilirubin (0.2-1) mg/dl Direct Bilirubin (0-0.2) mg/dl AST (15-37) U/L ALT (12-78) U/L Alkaline Phosphatase (45-117) U/L Total Creatine Kinase (26-192) U/L CK-MB (CK-2) (0.5-3.6) ng/ml CK/CKMB % Calc Troponin I (0-0.045) ng/ml Total Protein (6.4-8.2) gm/dl Albumin (3.4-5.0) gm/dl TSH (0.300-4.500) uIu/ml Free T4 (0.8-1.6) ng/dl Free T3 (2.3-4.2) pg/ml HCG, Qual Negative (Negative) Administered Medications Discontinued Medications Sodium Chloride (Nss 1000ml) 1,000 mls @ 999 mls/hr IV .Q1H1M ONE Stop: 12/30/19 00:25 Last Infusion: 12/30/19 00:33 Dose: 0 mls/hr Documented by: [id number] Admin: 12/29/19 23:31 Dose: 999 mls/hr Documented by: [id number] Metoprolol Tartrate (Lopressor) Confirm Administered Dose 5 mg IV .STK-MED ONE Stop: 12/29/19 23:22 Last Admin: 12/29/19 23:24 Dose: 5 mg Documented by: [id number] Metoprolol Tartrate (Lopressor) 5 mg IV NOW STA Stop: 12/29/19 23:26 Last Admin: 12/29/19 23:31 Dose: Not Given Documented by: [id number] Discharge Plan Visit Data Chief Complaint: Arrhythmia/Palpitations Stated Complaint: HEART PALPITATIONS ED Provider: Brendan Oconnor Discharge Problem: Tachycardia, Thyroid dysfunction, Hypokalemia Forms Stand Alone Forms: [employer] Prescriptions Prescriptions: No Action levothyroxine 50 mcg tablet 50 mcg PO DAILY Qty: 90 RF: 3 cholecalciferol (vitamin D3) 1,250 mcg (50,000 unit) capsule 1,250 mcg PO .COMPLEX Qty: 4 RF: 0 diltiazem HCl 30 mg tablet See Rx Instructions .ROUTE .COMPLEX Qty: 90 RF: 5
[2019-12-29 23:35] LABS: Hematocrit (blood only) 40.8 % (37-47); Mean Corpuscular Hemoglobin 30.3 pg (25-34); Mean Corpuscular Hgb Conc 34.3 g/dL (32-36); Mean Corpuscular Volume 88.3 fL (80-100); Mean Platelet Volume 10.5 fL (7.4-10.4); Platelet Count 304 K/uL (130-400); RDW Coefficient of Variation 12.9 % (11.5-14.5); RDW Standard Deviation 41.9 fL (36.4-46.3); Red Blood Count 4.62 M/uL (4.2-5.4); White Blood Count 12.13 K/uL (4.8-10.8)
[2019-12-29 23:53] LABS: Alanine Aminotransferase 16 U/L (12-78); Albumin Level 4.6 gm/dl (3.4-5.0); Aspartate Aminotransferase 9 U/L (15-37); BUN Creatinine Ratio 10.7 (10-20); Blood Urea Nitrogen 10 mg/dl (7-18); Calcium 9.6 mg/dl (8.5-10.1); Carbon Dioxide 22 mmol/L (21-32); Chloride 108 mmol/L (98-107); Creatinine Clr Calc Pharmacy 84.1 ml/min; Est GFR (African American) 99.9; Est GFR (Non-African American) 86.2; Glucose 104 mg/dl (70-99); Magnesium 2.1 mg/dl (1.8-2.4); Potassium 2.9 mmol/L (3.5-5.1); Sodium 140 mmol/L (136-145)
[2019-12-29 23:59] LABS: Basophils # (auto) 0.05 K/uL (0-0.2); Basophils % (auto) 0.4 %; Eosinophils # (auto) 0.18 K/uL (0-0.5); Eosinophils % (auto) 1.5 %; Immature Granulocytes # (auto) 0.03 K/uL (0.00-0.02); Immature Granulocytes % (auto) 0.2 %; Lymphocytes # (auto) 5.03 K/uL (1.2-3.4); Lymphocytes % (auto) 41.5 %; Monocytes # (auto) 0.85 K/uL (0.11-0.59); Neutrophils # (auto) 5.99 K/uL (1.4-6.5); Neutrophils % (auto) 49.4 %
[2019-12-30 00:04] LABS: Pregnancy Test, Serum Negative (Negative)
[2019-12-30 00:10] LABS: Alkaline Phosphatase 69 U/L (45-117); Bilirubin Direct 0.1 mg/dl (0-0.2); Bilirubin,Total 0.5 mg/dl (0.2-1); Creatine Kinase 61 U/L (26-192); Creatine Kinase MB < 1.0 ng/ml (0.5-3.6); T4 Free Thyroxine 1.24 ng/dl (0.8-1.6); Total Protein 8.8 gm/dl (6.4-8.2); Troponin I < 0.015 ng/ml (0-0.045)
--- NOTE | 2019-12-30 01:38 | History & Physical Report ---
Date of Service December 30, 2019 Assessment & Plan (1) Tachycardia: 19 yo F with PMH Autoimmune Thyroid Disease with a history of Hyperthyroidism currently in a Hypothyroid state, and multiple recent ER visits for palpitations presents again with tachycardia after switching to diltiazem from metoprolol today. Palpitations/Tachycardia -admit to telemetry -EKG: Sinus Tachycardia . Repeat daily -likely to be related to new medication change to Diltiazem that was started today. Pt was previously well controlled with Toprol XL 25 mg daily, but was recently stopped 2/2 allergic reaction, which appeared mild in nature -prn IV Metoprolol Tartrate 5mg for HR >100 -nitroglycerin prn for any possible chest pain -ECHO Sep 2019: LV systolic function is normal. RV systolic pressure is normal. No pericardial effusion. No significant valvular heart disease -advised to cont to maintain a good hydration status and avoid caffeine or any other stimulants -appreciate Cardiology consult for further medication management Autoimmune Thyroid Disease -follows with Dr. Arredondo- Endocrinology. Last visit 12/18/19 -believed to be more consistent with autoimmune destructive thyroiditis than Graves disease -TSH 14.6, Free T4 1.24, Free T3 3.39 on admission -cont levothyroxine 50 mcg Hypokalemia -K 2.9 on admission -will replete with KCl and K-riders and repeat BMP in AM FEN/GI: Regular Diet DVT Prophylaxis: Low Risk per Admission Calculator. Ambulation Full Code Dispo: Telemetry History of Present Illness Chief Complaint: palpitations Primary Care Provider: HELEN Smith 19 yo F with PMH Autoimmune Thyroid Disease with a history of Hyperthyroidism currently in a Hypothyroid state, and multiple recent ER visits for palpitations presents with the same. This particular episode began around 11PM and began at rest. Pt notes that palpitations worsen with exertion, and usually are resolved by rest/laying down. Associated fatigue and feelings of weakness. Otherwise denies any chest pain/heaviness/tightness/pressure/discomfort, diaphoresis, SOB, syncope or near syncope, edema, vision changes, PRICE, F/N/V/D, chills, abd pain, urinary sxs. Pt was initially diagnosed with hyperthyroidism in Sep 2019 after presenting with tachycardia and atypical chest discomfort. Her TSH was suppressed at 0.041 uIU/ml. Thyroid U/S done was consistent with thyroiditis. Thyroid Antimicrosomal Antibodies were elevated and Thyroglobulin Antibodies were also elevated. Patient was prescribed Methimazole but developed rash/hives in October 2019, so Methimazole was discontinued, then PTU. Eventually started on levothyroxine 50 mcg tabs end of November 2019. Pt was placed on Propranolol 10 mg BID for her hyperthyroid state and tachycardia, which was also discontinued in late October 2019 after complaining of fatigue and finding that her thyroid hormone levels were decreasing. At end of November 2019, pt presented multiple times for tachycardia and palpitations and was started on Toprol XL 25 mg, which she has taken for the past week and noted fewer palpitations and feeling better overall until 12/27/19, when she again presented to ER this time with concerns of possible allergic reaction to Metoprolol (developed a sensation of swelling in the left upper lip, sensation of a lump in her throat, but denied any itchiness or hives or breathing difficulties). After being dc'd, pt contacted both her Screw Machine Repairer and [employer] and they all agreed to start taking Diltiazem 30mg, which she just started taking today. Pt took 15mg at 10am and the other 15 mg at 6pm. Today's sxs of palpitations did not start until ~5 hrs after last dose around 11pm as noted above. Of note, pt switched from tablet to liquid form of levothyroxine last week as well, but no other new medication changes. Pertinent Labs: WBC 12.1, K 2.9, TSH 14.6, Free T4 1.24, Free T3 3.39 EKG: Sinus Tachycardia ER Course: IV Metoprolol Tartrate 5mg x2, NSS Allergies Allergy/AdvReac Type Severity Reaction Status Date / Time Cephalosporins Allergy Unknown Verified 12/24/19 10:50 methimazole Allergy Unknown Hives Verified 12/24/19 10:50 amoxicillin [From Augmentin] Allergy Verified 12/24/19 10:50 cefdinir [From Omnicef] Allergy Verified 12/24/19 10:50 clavulanic acid Allergy Verified 12/24/19 10:50 [From Augmentin] clindamycin [From Cleocin] Allergy Verified 12/24/19 10:50 Home Medications Home Medications Medication Instructions Recorded Confirmed Type cholecalciferol (vitamin D3) 1,250 1,250 mcg PO .COMPLEX #4 cap 12/20/19 12/29/19 Rx mcg (50,000 unit) capsule levothyroxine 50 mcg tablet 50 mcg PO DAILY #90 tab 12/20/19 12/29/19 Rx diltiazem HCl 30 mg tablet See Rx Instructions .ROUTE 12/28/19 12/29/19 Rx .COMPLEX #90 tab Past Med/Surg History Social History Preferred Language: Slovenian Communication Ability: Effective Machine Tech Required: No Beliefs That Will Affect Care: None Current Living Situation: Parent Current Living Situation Comment: lives with mom Other Information That Helps Us Care for You: No Feels Safe at Home: Yes Safety Concerns: Feels Safe At This Time Smoking Status: Never smoker Hx Alcohol Use: No Hx Substance Use: No Childhood Exposure to Second-Hand Smoke: No Dental Care, Regularly: Yes Review of Systems Review of Systems: All systems reviewed & are unremarkable except as noted in HPI & below Physical Exam Constitutional: WD/WN, vitals as above + thin Eyes: PERRL, conjunctivae normal, anicteric sclerae ENMT: external ear and nose normal, oropharynx normal Respiratory: normal respiratory effort, lungs clear to auscultation Cardiovascular: Rate/Rhythm: regular rhythm and + tachycardic Gastrointestinal (Abdomen): normal bowel sounds, soft, nontender, no hepatosplenomegaly Skin: no rashes, warm and dry Psychiatric: Orientation: alert and oriented x 3 Affect: + anxious affect Results & Data Results & Data ([place]) Vital Signs (Past 12 Hours) Vital Signs Temp Pulse Pulse Resp BP BP Pulse Ox 12/30/19 01:00 74 18 112/76 96 12/30/19 00:30 88 18 115/67 99 12/30/19 00:00 71 18 113/75 100 12/29/19 23:30 81 18 121/74 98 12/29/19 23:25 92 H 14 131/75 97 12/29/19 23:24 150 H 126/78 12/29/19 23:18 99 12/29/19 23:08 36.6 C 120 H 20 122/84 100 Laboratory Results Laboratory Results - last 24 hr 12/29/19 12/29/19 12/29/19 23:25 23:25 23:25 WBC 12.13 H RBC 4.62 Hgb 14.0 Hct 40.8 MCV 88.3 MCH 30.3 MCHC 34.3 RDW Std Deviation 41.9 RDW Coeff of Nya 12.9 Plt Count 304 MPV 10.5 H Immature Gran % (Auto) 0.2 Neut % (Auto) 49.4 Lymph % (Auto) 41.5 [place] % (Auto) 7.0 Eos % (Auto) 1.5 Baso % (Auto) 0.4 Immature Gran # (Auto) 0.03 H Neut # (Auto) 5.99 Lymph # (Auto) 5.03 H [place] # (Auto) 0.85 H Eos # (Auto) 0.18 Baso # (Auto) 0.05 Sodium 140 Potassium 2.9 L Chloride 108 H Carbon Dioxide 22 Anion Gap 10.0 BUN 10 Creatinine 0.95 Est Cr Clr Drug Dosing 84.1 Est GFR ( Amer) 99.9 Est GFR (Non-Af Amer) 86.2 BUN/Creatinine Ratio 10.7 Glucose 104 H Calcium 9.6 Phosphorus 3.4 Magnesium 2.1 Total Bilirubin 0.5 Direct Bilirubin 0.1 AST 9 L ALT 16 Alkaline Phosphatase 69 Total Creatine Kinase 61 CK-MB (CK-2) < 1.0 CK/CKMB % Calc TNP Troponin I < 0.015 Total Protein 8.8 H Albumin 4.6 TSH 14.600 H Free T4 1.24 Free T3 3.39 HCG, Qual 12/29/19 23:25 WBC RBC Hgb Hct MCV MCH MCHC RDW Std Deviation RDW Coeff of Nya Plt Count MPV Immature Gran % (Auto) Neut % (Auto) Lymph % (Auto) [place] % (Auto) Eos % (Auto) Baso % (Auto) Immature Gran # (Auto) Neut # (Auto) Lymph # (Auto) [place] # (Auto) Eos # (Auto) Baso # (Auto) Sodium Potassium Chloride Carbon Dioxide Anion Gap BUN Creatinine Est Cr Clr Drug Dosing Est GFR ( Amer) Est GFR (Non-Af Amer) BUN/Creatinine Ratio Glucose Calcium Phosphorus Magnesium Total Bilirubin Direct Bilirubin AST ALT Alkaline Phosphatase Total Creatine Kinase CK-MB (CK-2) CK/CKMB % Calc Troponin I Total Protein Albumin TSH Free T4 Free T3 HCG, Qual Negative Code Status & VTE Plan Code Status FULL Supervising Physician Co-Signing Physician Notes Patient seen and examined, chart reviewed, case discussed with Dr. Mac and I agree with his assessment and plan as above Resident Activity Tracking Resident Involvement: Resident Care Provided Care Provided: Adult [facility]
[2019-12-30 01:41] LABS: Phosphorus 3.4 mg/dl (2.5-4.9)
[2019-12-30] MEDS ORDERED: NITROGLYCERIN SL 0.4 MG/TAB TAB SL PRN (04:09)
[2019-12-30] MEDS ORDERED: ALUMINUM/MAGNESIUM SUSP 30 ML UDC PO PRN (04:09)
[2019-12-30] MEDS ORDERED: ONDANSETRON INJ 2 MG/ML 2 ML VIAL IV PRN (04:09)
[2019-12-30] MEDS ORDERED: METOPROLOL TARTRATE 1 MG/ML VIAL IV PRN (04:09)
[2019-12-30] MEDS ORDERED: ACETAMINOPHEN 325 MG TAB PO PRN (04:09)
[2019-12-30] MEDS ORDERED: POTASSIUM CHLORIDE 20 MEQ TABCR PO STA (04:09)
[2019-12-30] MEDS: POTASSIUM CHLORIDE / WTR 10 MEQ/100 ML PLCT IV SCH ×4 (04:36→09:11)
[2019-12-30] MEDS: LEVOTHYROXINE SODIUM 50 MCG TABLET PO SCH (05:49)
[2019-12-30 06:03] LABS: Basophils # (auto) 0.02 K/uL (0-0.2); Basophils % (auto) 0.2 %; Eosinophils # (auto) 0.05 K/uL (0-0.5); Eosinophils % (auto) 0.5 %; Hematocrit (blood only) 35.7 % (37-47); Hemoglobin 12.1 g/dL (12.0-16.0); Immature Granulocytes # (auto) 0.01 K/uL (0.00-0.02); Immature Granulocytes % (auto) 0.1 %; Lymphocytes # (auto) 2.62 K/uL (1.2-3.4); Lymphocytes % (auto) 27.5 %; Mean Corpuscular Hemoglobin 30.3 pg (25-34); Mean Corpuscular Hgb Conc 33.9 g/dL (32-36); Mean Corpuscular Volume 89.3 fL (80-100); Mean Platelet Volume 10.7 fL (7.4-10.4); Monocytes # (auto) 0.53 K/uL (0.11-0.59); Monocytes % (auto) 5.6 %; Neutrophils # (auto) 6.31 K/uL (1.4-6.5); Neutrophils % (auto) 66.1 %; Platelet Count 215 K/uL (130-400); RDW Coefficient of Variation 12.9 % (11.5-14.5); White Blood Count 9.54 K/uL (4.8-10.8)
[2019-12-30 06:42] LABS: BUN Creatinine Ratio 13.2 (10-20); Calcium 8.7 mg/dl (8.5-10.1); Creatinine Clr Calc Pharmacy 121.1 ml/min; Est GFR (African American) 147.4; Est GFR (Non-African American) 127.2
--- NOTE | 2019-12-30 07:10 | Billing Data ---
Date of Service December 30, 2019 Coding Level of Care Code 49773 OBS Care - Level 2
--- NOTE | 2019-12-30 13:22 | Cardiology Consultation ---
Date of Consultation December 30, 2019 Assessment & Plan (1) Sinus tachycardia: (2) Acute hypokalemia: ASSESSMENT/PLAN: 1. Sinus tachycardia: Etiology uncertain. Symptoms remain even though she is no longer hyper thyroid. Could be inappropriate sinus tachycardia. Symptoms are quite disturbing to her and are affecting her quality of life. We discussed potential treatment options to improve her quality of life such as trying other beta-dariel. Could also increase calcium channel dariel. She prefers to restart metoprolol succinate 25 mg once daily. She was asked to monitor for any adverse reaction. She does not appear to have a true allergy to this medication. She has inquired about EpiPen and this was discussed with Dr. Felipe of the primary hospitalist service; will defer decision of EpiPen to primary hospitalist or PCP. Given that she does not appear to have an actual allergy to a beta-dariel at this time, EpiPen does not seem necessary at this time. If she had true allergy to beta-dariel, would attempt alternative treatment option. 2. Hypokalemia: Will defer to primary hospitalist service. Would try to maintain normal potassium levels. 3. Disposition: Follow-up with her primary volleyball assembler in the office in approximately 2 weeks. Plan of care discussed with Dr. Felipe of the primary hospitalist service. Thank you for allowing me to participate in the care of your patient. Please call for any other questions or concerns. Sincerely, Deyvi Washburn M.D. History of Present Illness Reason for Consultation: Tachycardia Requesting Physician: Dr. Julito Mac Attending Physician: Marnie Felipe MD History of Present Illness Ms. Vieira is a pleasant 19-year-old female the with a history significant for autoimmune thyroid disorder with a history of hyperthyroidism, but most recently hypothyroid, and symptomatic sinus tachycardia. She has been managed in the outpatient cardiology office by Pal Hayes/Dr. Kessler. She states that she developed palpitations when she was diagnosed with hyperthyroidism the and was treated with propanolol and methimazole. Propanolol offered some benefit to her palpitations but her heart rate would still become quite elevated at times even into the 150 range. She states that there has been no specific trigger to her symptoms and they can occur even while sitting down or laying down in bed. No longer that she is standing, typically the symptoms would improve and her heart rate would improve over time. The symptoms are quite bothersome to her. In fact on 1 occasion, she was seen in the emergency department 3 times within 24 hours for the symptoms. She has not been consuming any caffeine and denies any drug abuse. She has not noted any specific association with her menstrual period. She was seen by Cardiology on 12/18/2019 and placed on metoprolol succinate 25 mg daily. While on metoprolol, her symptoms were significantly improved. Her heart rate was very well controlled. She then developed a lump in her throat and felt as though her lips were subjectively swollen however she states that when she was evaluated by other providers, they could not detect any obvious swelling or edema. She did not have any shortness of breath, hives, rash, fever, or other symptoms. She felt similar symptoms in the past, prior to metoprolol. Because of this, she called the office 2 days ago and metoprolol was discontinued in favor of diltiazem. She states that she was instructed to take 15 or 30 mg q.8 hours on an as-needed basis. She took 15 mg yesterday morning and again approximately 8 hours later. Despite this, her palpitations worsened and her heart rate was quite elevated. She came to the emergency department and was then admitted under observation. She denies chest discomfort, syncope, near-syncope, edema, melena, hematochezia, hematuria, or other bleeding. She denies actual shortness of breath but states that can feel hard to breathe when her heart rate is greater than 150 bpm. On telemetry, she has been noted to be in sinus rhythm with episodes of sinus tachycardia. She was given intravenous metoprolol tartrate and tolerated that well with improvement of her heart rate. She states that she remains well hydrated and has been eating per her usual habits. Review of systems: As above. Review of systems otherwise negative/unremarkable. Family history: Father had atrial flutter. There is a history of heart disease on her paternal side. Social history: She denies tobacco, alcohol, or drug abuse. She lives at home with her mother and sister. She is not . She has no children. She works at the [employer]. 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 She is unaccompanied. Allergies Allergy/AdvReac Type Severity Reaction Status Date / Time Cephalosporins Allergy Unknown Verified 12/24/19 10:50 methimazole Allergy Unknown Hives Verified 12/24/19 10:50 amoxicillin [From Augmentin] Allergy Verified 12/24/19 10:50 cefdinir [From Omnicef] Allergy Verified 12/24/19 10:50 clavulanic acid Allergy Verified 12/24/19 10:50 [From Augmentin] clindamycin [From Cleocin] Allergy Verified 12/24/19 10:50 Home Medications Home Medications Medication Instructions Recorded Confirmed Type cholecalciferol (vitamin D3) 1,250 1,250 mcg PO .COMPLEX #4 cap 12/20/19 12/29/19 Rx mcg (50,000 unit) capsule levothyroxine 50 mcg tablet 50 mcg PO DAILY #90 tab 12/20/19 12/29/19 Rx diltiazem HCl 30 mg tablet See Rx Instructions .ROUTE 12/28/19 12/29/19 Rx .COMPLEX #90 tab Patient History Social History Preferred Language: Nepali Communication Ability: Effective Stucco Worker Required: No Beliefs That Will Affect Care: None Current Living Situation: Parent Current Living Situation Comment: lives with mom Other Information That Helps Us Care for You: No Feels Safe at Home: Yes Safety Concerns: Feels Safe At This Time Smoking Status: Never smoker Hx Alcohol Use: No Hx Substance Use: No Childhood Exposure to Second-Hand Smoke: No Dental Care, Regularly: Yes Physical Exam Physical Exam: Gen.: No acute distress. Alert and oriented. HEENT: Anicteric sclera. Neck: No JVD. No bruits. Normal carotid upstrokes bilaterally. Cardiac: PMI was nondisplaced. No ventricular heave. Regular rate and rhythm. Normal S1-S2. No murmurs, rubs, or gallops. Pulmonary: Clear to auscultation bilaterally without wheezes, rales, or rhonchi. Abdomen: Soft, nontender, nondistended, with normoactive bowel sounds. No bruits noted. Extremities: 2+ radial pulses bilaterally. 2+ posterior tibialis pulses bilaterally. No edema or cyanosis. Psychiatric: Affect appears appropriate. Results & Data ([facility]) Vital Signs (Past 12 Hours) Vital Signs Temp Pulse Pulse Resp BP BP Pulse Ox 12/30/19 11:55 36.7 C 62 18 99/64 L 99 12/30/19 09:11 108 H 12/30/19 08:00 63 12/30/19 07:55 36.7 C 112 H 16 97/65 L 98 12/30/19 04:28 93 H 12/30/19 04:18 36.5 C 71 18 100/63 98 12/30/19 03:30 63 18 99/58 L 97 12/30/19 03:00 71 18 108/67 97 12/30/19 02:30 70 18 99/72 L 97 12/30/19 02:00 73 18 96/56 L 97 12/30/19 01:30 86 18 117/72 97 Laboratory Results Laboratory Results - last 24 hr 12/29/19 12/29/19 12/29/19 23:25 23:25 23:25 WBC 12.13 H RBC 4.62 Hgb 14.0 Hct 40.8 MCV 88.3 MCH 30.3 MCHC 34.3 RDW Std Deviation 41.9 RDW Coeff of Nya 12.9 Plt Count 304 MPV 10.5 H Immature Gran % (Auto) 0.2 Neut % (Auto) 49.4 Lymph % (Auto) 41.5 Comal % (Auto) 7.0 Eos % (Auto) 1.5 Baso % (Auto) 0.4 Immature Gran # (Auto) 0.03 H Neut # (Auto) 5.99 Lymph # (Auto) 5.03 H Comal # (Auto) 0.85 H Eos # (Auto) 0.18 Baso # (Auto) 0.05 Sodium 140 Potassium 2.9 L Chloride 108 H Carbon Dioxide 22 Anion Gap 10.0 BUN 10 Creatinine 0.95 Est Cr Clr Drug Dosing 84.1 Est GFR ( Amer) 99.9 Est GFR (Non-Af Amer) 86.2 BUN/Creatinine Ratio 10.7 Glucose 104 H Calcium 9.6 Phosphorus 3.4 Magnesium 2.1 Total Bilirubin 0.5 Direct Bilirubin 0.1 AST 9 L ALT 16 Alkaline Phosphatase 69 Total Creatine Kinase 61 CK-MB (CK-2) < 1.0 CK/CKMB % Calc TNP Troponin I < 0.015 Total Protein 8.8 H Albumin 4.6 TSH 14.600 H Free T4 1.24 Free T3 3.39 HCG, Qual 12/29/19 12/30/19 12/30/19 23:25 05:35 05:35 WBC 9.54 RBC 4.00 L Hgb 12.1 Hct 35.7 L MCV 89.3 MCH 30.3 MCHC 33.9 RDW Std Deviation 42.0 RDW Coeff of Nya 12.9 Plt Count 215 MPV 10.7 H Immature Gran % (Auto) 0.1 Neut % (Auto) 66.1 Lymph % (Auto) 27.5 Comal % (Auto) 5.6 Eos % (Auto) 0.5 Baso % (Auto) 0.2 Immature Gran # (Auto) 0.01 Neut # (Auto) 6.31 Lymph # (Auto) 2.62 Comal # (Auto) 0.53 Eos # (Auto) 0.05 Baso # (Auto) 0.02 Sodium 141 Potassium 4.0 D Chloride 113 H Carbon Dioxide 22 Anion Gap 6.0 BUN 9 Creatinine 0.66 Est Cr Clr Drug Dosing 121.1 Est GFR ( Amer) 147.4 Est GFR (Non-Af Amer) 127.2 BUN/Creatinine Ratio 13.2 Glucose 89 Calcium 8.7 Phosphorus Magnesium Total Bilirubin Direct Bilirubin AST ALT Alkaline Phosphatase Total Creatine Kinase CK-MB (CK-2) CK/CKMB % Calc Troponin I Total Protein Albumin TSH Free T4 Free T3 HCG, Qual Negative Diagnostic Findings Telemetry personally reviewed: Sinus rhythm with episodes of sinus tachycardia. No arrhythmia noted. ECGs personally reviewed: ECG 12/29/2019 at 11:23 p.m.: Sinus tachycardia 141 bpm. ECG 12/30/2019 at 12:02 a.m.: Sinus arrhythmia 74 bpm. Echo 10/13/2019: Normal LV systolic function. No significant valvular abnormalities reported. Medications Administered Current Inpatient Medications Acetaminophen (Tylenol) 650 mg PO Q4H PRN PRN Reason: Pain or Fever Stop: 01/29/20 04:08 Al Hydrox/Mg Hydrox/Simethicone (Maalox) 15 ml PO Q4H PRN PRN Reason: Dyspepsia Stop: 01/29/20 04:08 Ergocalciferol (Vitamin D2) 50,000 units PO Tu@0900 [facility] Stop: 01/31/20 08:59 Levothyroxine Sodium (Synthroid) 50 mcg PO DAILYBB [facility] Stop: 01/29/20 06:29 Last Admin: 12/30/19 05:49 Dose: 50 mcg Documented by: Metoprolol Succinate (Toprol Xl) 25 mg PO QAM ANDREAS Stop: 01/29/20 13:29 Metoprolol Tartrate (Lopressor) 5 mg IV Q4 PRN PRN Reason: Tachycardia Stop: 01/29/20 04:08 Last Admin: 12/30/19 09:11 Dose: 5 mg Documented by: Nitroglycerin (Nitrostat) 0.4 mg SL UD PRN PRN Reason: Chest Pain Stop: 01/29/20 04:08 Ondansetron HCl (Zofran) 4 mg IV Q6H PRN PRN Reason: Nausea Stop: 01/29/20 04:08 PG Care Time/CCT Total # of Minutes Spent Total Time Spent with Patient: Total time spent is greater than 50% in coordination of care (as documented) at patient's floor/unit and/or counseling patient: Coding Level of Care Code 72117 Office/OBS Consult Lvl 4 Diagnoses Sinus tachycardia R00.0 Acute hypokalemia E87.6
[2019-12-30] MEDS: METOPROLOL SUCC 25MG EXT REL TAB PO SCH (14:44)
--- NOTE | 2019-12-30 18:07 | History & Physical Bridge Note ---
Date of Service December 30, 2019 History & Physical Bridge Note I have examined the patient, reviewed the History & Physical and in the interval since the performance of the History & Physical I have noted the following changes of clinical significance: Pt was restarted on Toprol XL 25mg daily today for her heart palpitations and tachycardia. Heart rate much better control now. She had a possible allergic reaction to it in the past with lip tingling and possible lip swelling. I checked on her several hours after receiving the dose and she is doing very well. No further palpitations, no lip or tongue swelling. Feels much better but wants to stay overnight for continued observation to make sure heart rate, BP ok and no allergic reaction. NAD, tin, AAOx3 RRR no mgr CTAB no wcr Ext no edema 19 yo female with a h/o autoimmune destructive thyroiditis, tachycardia, palpitations. Improving already with restarting Toprol XL Discussed case with Cardiology Likely stable for dc to home tomorrow
--- NOTE | 2019-12-30 22:56 | Electrocardiogram Report ---
Test Reason : Blood Pressure : / mmHG Vent. Rate : 118 BPM Atrial Rate : 118 BPM P-R Int : 136 ms QRS Dur : 082 ms QT Int : 346 ms P-R-T Axes : 081 077 055 degrees QTc Int : 484 ms Sinus tachycardia Biatrial enlargement Nonspecific ST abnormality Abnormal ECG When compared with ECG of 18-DEC-2019 03:12, No significant change was found Confirmed by Jose Washburn ([id number]) on 12/30/2019 10:56:03 PM Referred By: REFERRED SELF Confirmed By:Jose Washburn
--- NOTE | 2019-12-30 22:56 | Electrocardiogram Report ---
Test Reason : Blood Pressure : / mmHG Vent. Rate : 141 BPM Atrial Rate : 141 BPM P-R Int : 112 ms QRS Dur : 080 ms QT Int : 366 ms P-R-T Axes : 068 076 068 degrees QTc Int : 560 ms Poor data quality, interpretation may be adversely affected Sinus tachycardia Nonspecific ST abnormality Abnormal ECG When compared with ECG of 29-DEC-2019 23:17, No significant change was found Confirmed by Jose Washburn ([id number]) on 12/30/2019 10:56:31 PM Referred By: REFERRED SELF Confirmed By:Jose Washburn
--- NOTE | 2019-12-30 22:58 | Electrocardiogram Report ---
Test Reason : Blood Pressure : / mmHG Vent. Rate : 074 BPM Atrial Rate : 074 BPM P-R Int : 200 ms QRS Dur : 084 ms QT Int : 390 ms P-R-T Axes : 049 073 053 degrees QTc Int : 432 ms Sinus rhythm with marked sinus arrhythmia Otherwise normal ECG When compared with ECG of 29-DEC-2019 23:23, Vent. rate has decreased BY [address] no longer depressed in Anterolateral leads Confirmed by Jose Washburn ([id number]) on 12/30/2019 10:58:05 PM Referred By: REFERRED SELF Confirmed By:Jose Washburn
[2019-12-31] MEDS: LEVOTHYROXINE SODIUM 50 MCG TABLET PO SCH (05:32)
[2019-12-31] MEDS: METOPROLOL SUCC 25MG EXT REL TAB PO SCH (08:02)
[2019-12-31 10:16] LABS: BUN Creatinine Ratio 12.7 (10-20); Calcium 9.5 mg/dl (8.5-10.1); Creatinine Clr Calc Pharmacy 86.1 ml/min; Est GFR (African American) 101.2; Est GFR (Non-African American) 87.3; Potassium 3.8 mmol/L (3.5-5.1)
--- NOTE | 2019-12-31 12:11 | Cardiology Progress Note ---
Date of Service December 31, 2019 Assessment & Plan (1) Sinus tachycardia: (2) Acute hypokalemia: ASSESSMENT/PLAN: 1. Sinus tachycardia: Etiology uncertain. Possibly inappropriate sinus tachycardia. Symptoms are much improved on metoprolol succinate 25 mg daily. Her tachycardia has improved significantly as well. She has not had any significant adverse reaction to metoprolol succinate and no obvious signs of allergic reaction. Would continue metoprolol succinate 25 mg once daily on discharge. 2. Hypokalemia: Will defer to primary hospitalist service. Would try to maintain normal potassium levels. 3. Disposition: Follow-up with her primary gaming dealer in the office in [facility] oximately 2 weeks. Patient care communicated with Dr. Vazquez of the primary hospitalist service. Admission and Anticipated Discharge Date Admission Date: December 30, 2019 Subjective She was seen earlier today prior to discharge. She has not noted any palpitations while on metoprolol succinate 25 mg daily. She did feel a lump in her throat for short period of time this morning but that subsided. She denies shortness of breath, hives, rash, or other allergic reaction. She denies chest pain, syncope, near-syncope, or edema. She has not yet ambulated in the hallway but was asked to do so prior to discharge. Review of systems: As above. Physical Exam Physical Exam: Gen.: No acute distress. Alert and oriented. HEENT: Anicteric sclera. Neck: No JVD. Cardiac: Regular rate and rhythm. Normal S1-S2. No murmurs, rubs, or gallops. Pulmonary: Clear to auscultation bilaterally without wheezes, rales, or rhonchi. Abdomen: Soft, nontender, nondistended, with normoactive bowel sounds. No bruits noted. Extremities: 2+ radial pulses bilaterally. 2+ posterior tibialis pulses bilaterally. No edema or cyanosis. Psychiatric: Affect appears appropriate. Results & Data ([facility]) Vital Signs (Past 12 Hours) Vital Signs Temp Pulse Pulse Resp BP BP Pulse Ox 12/31/19 11:05 90/59 L 12/31/19 10:58 36.9 C 81 19 89/54 L 94 12/31/19 09:45 47 L 12/31/19 07:05 36.7 C 100 H 18 101/67 98 12/31/19 02:54 36.5 C 83 17 100/65 98 12/31/19 02:00 65 Laboratory Results Laboratory Results - last 24 hr 12/31/19 09:15 Sodium 138 Potassium 3.8 Chloride 107 Carbon Dioxide 22 Anion Gap 9.0 BUN 12 Creatinine 0.94 Est Cr Clr Drug Dosing 86.1 Est GFR ( Amer) 101.2 Est GFR (Non-Af Amer) 87.3 BUN/Creatinine Ratio 12.7 Glucose 103 H Calcium 9.5 Magnesium 2.0 Diagnostic Findings Telemetry personally reviewed: sinus rhythm. Less sinus tachycardia. No arrhythmia. Medications Administered Current Inpatient Medications Acetaminophen (Tylenol) 650 mg PO Q4H PRN PRN Reason: Pain or Fever Stop: 01/29/20 04:08 Al Hydrox/Mg Hydrox/Simethicone (Maalox) 15 ml PO Q4H PRN PRN Reason: Dyspepsia Stop: 01/29/20 04:08 Ergocalciferol (Vitamin D2) 50,000 units PO Tu@0900 [facility] Stop: 01/31/20 08:59 Levothyroxine Sodium (Synthroid) 50 mcg PO DAILYBB [facility] Stop: 01/29/20 06:29 Last Admin: 12/31/19 05:32 Dose: 50 mcg Documented by: [facility]oprolol [facility] ([facility]l) [facility]: 01/29/20 13:29 Last Admin: 12/31/19 08:02 Dose: 25 mg Documented by: Metoprolol Tartrate (Lopressor) 5 mg IV Q4 PRN PRN Reason: Tachycardia Stop: 01/29/20 04:08 Last Admin: 12/30/19 09:11 Dose: 5 mg Documented by: Nitroglycerin (Nitrostat) 0.4 mg SL UD PRN PRN Reason: Chest Pain Stop: 01/29/20 04:08 Ondansetron HCl (Zofran) 4 mg IV Q6H PRN PRN Reason: Nausea Stop: 01/29/20 04:08 PG Care Time/CCT Total # of Minutes Spent Total Time Spent with Patient: Total time spent is greater than 50% in coordination of care (as documented) at patient's floor/unit and/or counseling patient: Coding Level of Care Code 79431 Office/Outpt Visit, Est Diagnoses Sinus tachycardia R00.0 Acute hypokalemia E87.6
--- NOTE | 2019-12-31 12:17 | Discharge Summary ---
Date of Service December 31, 2019 Admission HPI Per Admitting Provider 19 yo F with PMH Autoimmune Thyroid Disease with a history of Hyperthyroidism currently in a Hypothyroid state, and multiple recent ER visits for palpitations presents with the same. This particular episode began around 11PM and began at rest. Pt notes that palpitations worsen with exertion, and usually are resolved by rest/laying down. Associated fatigue and feelings of weakness. Otherwise denies any chest pain/heaviness/tightness/pressure/discomfort, diaphoresis, SOB, syncope or near syncope, edema, vision changes, PRICE, F/N/V/D, chills, abd pain, urinary sxs. Pt was initially diagnosed with hyperthyroidism in Sep 2019 after presenting with tachycardia and atypical chest discomfort. Her TSH was suppressed at 0.041 uIU/ml. Thyroid U/S done was consistent with thyroiditis. Thyroid Antimicrosomal Antibodies were elevated and Thyroglobulin Antibodies were also elevated. Patient was prescribed Methimazole but developed rash/hives in October 2019, so Methimazole was discontinued, then PTU. Eventually started on levothyroxine 50 mcg tabs end of November 2019. Pt was placed on Propranolol 10 mg BID for her hyperthyroid state and tachycardia, which was also discontinued in late October 2019 after complaining of fatigue and finding that her thyroid hormone levels were decreasing. At end of November 2019, pt presented multiple times for tachycardia and palpitations and was started on Toprol XL 25 mg, which she has t aken for the past week and noted fewer palpitations and feeling better overall until 12/27/19, when she again presented to ER this time with concerns of possible allergic reaction to Metoprolol (developed a sensation of swelling in the left upper lip, sensation of a lump in her throat, but denied any itchiness or hives or breathing difficulties). After being dc'd, pt contacted both her Sales Appointment Coordinator and Bowling Alley Operator and they all agreed to start taking Diltiazem 30mg, which she just started taking today. Pt took 15mg at 10am and the other 15 mg at 6pm. Today's sxs of palpitations did not start until ~5 hrs after last dose around 11pm as noted above. Of note, pt switched from tablet to liquid form of levothyroxine last week as well, but no other new medication changes. Pertinent Labs: WBC 12.1, K 2.9, TSH 14.6, Free T4 1.24, Free T3 3.39 EKG: Sinus Tachycardia ER Course: IV Metoprolol Tartrate 5mg x2, NSS Principal Diagnosis Inappropriate sinus tachycardia, Palpitations Discharge Exam Constitutional well developed and + thin; no acute distress Eyes + anicteric sclerae; normal pupil size ENMT external ear and nose normal, oropharynx normal Respiratory normal respiratory effort, lungs clear to auscultation Cardiovascular Rate/Rhythm: regular rhythm and + tachycardic Heart Sounds: no murmur Neurologic moves all extremities and awake; not confused Psychiatric Orientation: alert and oriented x 3 Discharge Data Allergies Allergy/AdvReac Type Severity Reaction Status Date / Time amoxicillin [From Augmentin] Allergy Unknown Hives Verified 01/02/20 15:48 cefdinir [From Omnicef] Allergy Unknown Hives Verified 01/02/20 15:48 Cephalosporins Allergy Unknown Hives Verified 01/02/20 15:48 clavulanic acid Allergy Unknown Hives Verified 01/02/20 15:48 [From Augmentin] clindamycin [From Cleocin] Allergy Unknown Hives Verified 01/02/20 15:48 methimazole Allergy Unknown Hives and Verified 01/02/20 15:48 fever Consultations 12/30/19 00:42 ED Decision to Admit Stat 12/30/19 04:09 Consult Cardiology Routine Hospital Course (1) Sinus tachycardia: Jesika Vieira is a 19 year old female admitted overnight to [facility] overnight from December 29 to due to palpitations, worse with exertion. Rhythm sinus tachycardia on telemetry. Reviewed by cardiology and diagnosed with inappropriate sinus tachycardia. Possibly linked to your ongoing thyroid problems, withdrawal from recent beta dariel / Ca channel dariel use, low potassium or possibly underlying inappropriate sinus tachycardia. Her weight and nutritional status may also be playing a role. Switched from diltiazem back to Metoprolol succinate 25mg PO daily. Heart rate 81 on discharge. She was advised to follow up with her PCP. Total Time Total Time Spent Total Time Spent (In Minutes): 35 Discharge Plan Discharge Items Patient Disposition: Home - Self-Care Reason For Visit: PALPITATIONS, TACHY Discharge Diagnosis: Inappropriate sinus tachycardia, Palpitations Activity: Resume your previous activity Non-emergency contact: Primary Care Provider Call non-emergency contact if: you have any medication questions and your symptoms worsen Follow-up/Referrals: Mckenna Bryant CRNP [Primary Care Provider] - Diet: Regular Addtl Attending Provider Instructions: You were admitted overnight to [facility] overnight from December 29 to due to palpitations, worse with exertion. Your rhythm appears to be a sinus tachycardia (normal rhythm but with a fast rate) during this time. This may be possibly linked to your ongoing thyroid problems, withdrawal from recent beta dariel / Ca channel dariel use, low potassium or possibly underlying inappropriate sinus tachycardia. This was treated with Metoprolol succinate 25mg PO daily (please take this regularly once/day) and potassium supplementation. Please continue medications below as prescribed and follow up with your primary care physician in the next 1-2 weeks for ongoing management. Pending Studies at Discharge: No Stand-Alone Forms: My [facility], Smoking Cessation Medications and DC Order Prescriptions: New metoprolol succinate 25 mg Tablet Extended Release 24 Hr 25 mg PO QAM Qty: 30 RF: 0 potassium chloride 15 mEq tablet,ER particles/crystals 15 meq PO DAILY Qty: 30 RF: 0 Discontinued diltiazem HCl 30 mg tablet See Rx Instructions .ROUTE .COMPLEX Qty: 90 RF: 5 No Action levothyroxine 50 mcg/mL Solution 50 mcg PO QAM RF: 0 cholecalciferol (vitamin D3) 1,250 mcg (50,000 unit) capsule 1,250 mcg PO WK RF: 0 Discharge Orders: Discharge Order (Routine); Ordered 12/31/19 Ordered By: Marcelino Dc/Other Patient Handouts: Potassium, Tachycardia, Metoprolol tablets Admission Data Admit Date/Time: 12/30/19 02:42 Attending Provider: Marcelino Vazquez Admit Provider: Neel Mac Primary Care Provider: Mckenna Bryant Other Providers: Jose Washburn Other Interventions: Discharge Summary Assessment (RN) Last Done: 12/31/19 12:38 DC Date/Time DO NOT enter until pt leaves facility: 12/31/19 13:21 Coding Level of Care Code 51890 OBS Care - Discharge Diagnoses Sinus tachycardia R00.0
--- NOTE | 2019-12-31 23:46 | Electrocardiogram Report ---
Test Reason : Blood Pressure : / mmHG Vent. Rate : 053 BPM Atrial Rate : 053 BPM P-R Int : 160 ms QRS Dur : 096 ms QT Int : 416 ms P-R-T Axes : 073 069 058 degrees QTc Int : 390 ms Sinus bradycardia Otherwise normal ECG When compared with ECG of 30-DEC-2019 00:02, No significant change was found Confirmed by Jose Washburn ([id number]) on 12/31/2019 11:45:53 PM Referred By: REFERRED SELF Confirmed By:Jose Washburn
[2020-01-01] MEDS ORDERED: ERGOCALCIFEROL 50,000 UNITS CAP PO SCH (09:00)
== END 2019-12-31 13:21 | disposition home or self-care (01) ==
LOC: ED 23:04 → 2S 23:04 → SUATTDRO 12-30 02:42 → 2S 12-30 03:41